=== PATIENT | female | born 1985 ===

== ENCOUNTER → 2020-02-28 09:48 | Outpatient (BNVA) | payer MEDICAID, SELFPAY | PROVIDERS: PCP Internal Medicine; Visit Provider Student in an Organized Health Care Education/Training Program | DX: Z76.89 Persons encountering health services in other specified circumstances (principal) ==

== ENCOUNTER → 2020-03-26 14:34 | Outpatient (BNVA) | payer MEDICAID, SELFPAY | PROVIDERS: PCP Internal Medicine; Visit Provider Nurse Practitioner Family | DX: M47.814 Spondylosis without myelopathy or radiculopathy, thoracic region (principal); M54.2 Cervicalgia; M46.1 Sacroiliitis, not elsewhere classified; M54.16 Radiculopathy, lumbar region | CPT/HCPCS: 99202 ==

== ENCOUNTER 2020-04-08 11:59 | Outpatient (REF) | payer MEDICAID, SELFPAY ==
--- NOTE | 2020-04-08 12:08 | XR_ITS ---
EXAMINATION: XR THORACIC SPINE CLINICAL INFORMATION: Spondylosis without myelopathy or radiculopathy, thoracic region. COMPARISON: None TECHNIQUE: Thoracic spine, 3 views FINDINGS: The thoracic vertebra have normal height and alignment. The anterior and posterior elements are intact. No focal lytic or osteoblastic lesion. Mild multilevel disc space narrowing and/or vertebral osteophyte formation in the mid to lower thoracic spine. No vertebral endplate erosion or paraspinal soft tissue swelling. XR/XR thoracic spine 2V IMPRESSION: * Mild degenerative changes/spondylosis of the thoracic spine. * No fracture or malalignment.
== END 2020-04-08 12:00 | disposition home or self-care (01) ==
LOC: HO.LAB 11:59
PROVIDERS: Referring Provider Student in an Organized Health Care Education/Training Program; Visit Provider Student in an Organized Health Care Education/Training Program
DX: M47.814 Spondylosis without myelopathy or radiculopathy, thoracic region (principal)
CPT/HCPCS: 72070

== ENCOUNTER → 2020-04-15 12:52 | Outpatient (BNVA) | payer MEDICAID, SELFPAY | PROVIDERS: PCP Internal Medicine; Visit Provider Nurse Practitioner Family | DX: M54.16 Radiculopathy, lumbar region (principal); M46.1 Sacroiliitis, not elsewhere classified; M47.814 Spondylosis without myelopathy or radiculopathy, thoracic region | CPT/HCPCS: 99212 ==

== ENCOUNTER 2020-05-27 06:06 | Outpatient (REF) | payer MEDICAID, SELFPAY ==
--- NOTE | ~2020-05-27 | FL_ITS ---
EXAMINATION: XR FLUOROSCOPY WITH IMAGES CLINICAL INFORMATION: Thoracic spondylosis COMPARISON: None. TECHNIQUE: Fluoroscopy performed by Charlotte Menjivar NP. Fluoroscopy time: 0.7 minutes DAP: 4.1 Gycm2 Images: 6 FINDINGS: Images demonstrate needle placement and contrast injection of the paravertebral soft tissues adjacent to the the lower thoracic spine bilaterally. FL/FL guidance in treatment room IMPRESSION: Fluoroscopic guidance for bilateral paraspinal injections.
== END 2020-05-27 06:07 | disposition home or self-care (01) ==
LOC: HO.RADIR 06:06
PROVIDERS: Visit Provider Anesthesiology
DX: M47.814 Spondylosis without myelopathy or radiculopathy, thoracic region (principal); M54.16 Radiculopathy, lumbar region; M46.1 Sacroiliitis, not elsewhere classified
CPT/HCPCS: 64490; 64491; Q9967

== ENCOUNTER → 2020-06-03 10:18 | Outpatient (BNVA) | payer MEDICAID, SELFPAY | PROVIDERS: PCP Internal Medicine; Visit Provider Nurse Practitioner Family ==

== ENCOUNTER 2020-07-08 14:20 | Outpatient (REF) | payer MEDICAID, SELFPAY ==
[2020-07-08 14:51] LABS: COVID-19 Test Negative (Negative)
== END 2020-07-08 14:21 | disposition home or self-care (01) ==
LOC: HO.LAB 14:20
PROVIDERS: Visit Provider Internal Medicine
DX: Z20.822 Contact with and (suspected) exposure to COVID-19 (principal)
CPT/HCPCS: 36415; 87635; C9803

== ENCOUNTER → 2020-11-03 13:51 | Outpatient (BNVA) | payer MEDICAID, SELFPAY | PROVIDERS: PCP Internal Medicine; Visit Provider Nurse Practitioner Family | DX: M47.814 Spondylosis without myelopathy or radiculopathy, thoracic region (principal) | CPT/HCPCS: 99212 ==

== ENCOUNTER 2021-07-10 12:52 | Outpatient (REF) | payer MEDICAID, SELFPAY ==
[2021-07-10 14:14] LABS: Alanine Aminotransferase 27 U/L (0-31); Albumin Level 4.4 g/dL (3.5-5.0); Alkaline Phosphatase 69 U/L (39-117); Anion Gap 14 (12-20); Aspartate Amino Transferase 23 U/L (5-31); Bilirubin Total 0.3 mg/dL (0.0-1.0); Blood Urea Nitrogen 10 mg/dL (9-16); Calcium 9.6 mg/dL (8.4-10.2); Carbon Dioxide 24 mmol/L (22-29); Chloride 106 mmol/L (96-108); Estimated Glomerular Filt Rate > 60; Glucose Random 89 mg/dL (60-115); Sodium 140 mmol/L (135-145); Total Protein 7.5 g/dL (6.5-8.0)
== END 2021-07-10 12:53 | disposition home or self-care (01) ==
LOC: HO.LAB 12:52
PROVIDERS: Visit Provider Nurse Practitioner Family
DX: M47.814 Spondylosis without myelopathy or radiculopathy, thoracic region (principal); M46.1 Sacroiliitis, not elsewhere classified
CPT/HCPCS: 36415; 80053; 99212

== ENCOUNTER → 2021-08-19 09:19 | Outpatient (BNVA) | payer MEDICAID, SELFPAY | PROVIDERS: PCP Internal Medicine; Visit Provider Nurse Practitioner Family | DX: M47.814 Spondylosis without myelopathy or radiculopathy, thoracic region (principal); M54.16 Radiculopathy, lumbar region; M62.838 Other muscle spasm | CPT/HCPCS: 99212 ==

== ENCOUNTER → 2021-08-25 10:35 | Outpatient (BNVA) | payer SELFPAY | PROVIDERS: PCP Internal Medicine; Visit Provider Internal Medicine | DX: Z02.79 Encounter for issue of other medical certificate (principal) ==

== ENCOUNTER → 2021-09-30 09:02 | Outpatient (BNVA) | payer MEDICAID, SELFPAY | PROVIDERS: PCP Internal Medicine; Visit Provider Nurse Practitioner Family | DX: M47.24 Other spondylosis with radiculopathy, thoracic region (principal); M54.16 Radiculopathy, lumbar region; M62.838 Other muscle spasm; M25.562 Pain in left knee; Z79.899 Other long term (current) drug therapy | CPT/HCPCS: 99212 ==

== ENCOUNTER 2021-10-09 10:34 | Outpatient (REF) | payer MEDICAID, SELFPAY ==
--- NOTE | ~2021-10-09 | MR_ITS ---
EXAMINATION: MR THORACIC SPINE WITHOUT CONTRAST CLINICAL INFORMATION: Thoracic radiculopathy. COMPARISON: Thoracic spine radiographs 04/08/2020. TECHNIQUE: MRI of the thoracic spine was obtained using routine sequences without contrast. FINDINGS: Alignment is normal. Vertebral heights are preserved. Mixed type II and type III degenerative endplate changes at T9-T10 and T10-T11. No acute bone marrow signal changes. There is slight loss of intervertebral disc height and T2 signal intensity at multiple levels related to disc degeneration. Annular contours are normal and there is no canal or neuroforaminal compromise. No cord compression or abnormal intramedullary signal changes. Limited visualization of intrathoracic anatomy reveals no abnormal finding. Specifically no paraspinal soft tissue mass or collection. MR/MR thoracic spine wo con IMPRESSION: There is degenerative spondylosis at the level of T9-T10 and T10-T11. Otherwise unremarkable examination. No canal or neuroforaminal compromise. No cord compression or abnormal intramedullary signal changes.
== END 2021-10-09 10:35 | disposition home or self-care (01) ==
LOC: HO.MRI 10:34
PROVIDERS: Visit Provider Nurse Practitioner Family
DX: M54.14 Radiculopathy, thoracic region (principal); M47.816 Spondylosis without myelopathy or radiculopathy, lumbar region
CPT/HCPCS: 72146

== ENCOUNTER 2021-10-14 12:30 | Outpatient (REF) | payer MEDICAID, SELFPAY ==
--- NOTE | ~2021-10-14 | XR_ITS ---
EXAMINATION: KNEE X-RAY CLINICAL INFORMATION: Pain COMPARISON: None TECHNIQUE: Standing AP view of both knees and lateral and sunrise view of the left knee FINDINGS: Left: Bone alignment is normal. No fracture or dislocation is seen. Joint spaces are normal. There is no joint effusion. There is an osteophyte at the quadriceps tendon insertion to the patella. Standing AP view of the right knee is unremarkable. XR/XR knee LT 2V IMPRESSION: Small osteophyte at the quadriceps tendon insertion to the patella otherwise unremarkable exam.
--- NOTE | ~2021-10-14 | XR_ITS ---
EXAMINATION: KNEE X-RAY CLINICAL INFORMATION: Pain COMPARISON: None TECHNIQUE: Standing AP view of both knees and lateral and sunrise view of the left knee FINDINGS: Left: Bone alignment is normal. No fracture or dislocation is seen. Joint spaces are normal. There is no joint effusion. There is an osteophyte at the quadriceps tendon insertion to the patella. Standing AP view of the right knee is unremarkable. XR/XR knee standing BI IMPRESSION: Small osteophyte at the quadriceps tendon insertion to the patella otherwise unremarkable exam.
== END 2021-10-14 12:31 | disposition home or self-care (01) ==
LOC: HO.HOSX 12:30
PROVIDERS: Visit Provider Physician Assistant
DX: M23.92 Unspecified internal derangement of left knee (principal); S80.02XA Contusion of left knee, initial encounter; M25.561 Pain in right knee
CPT/HCPCS: 73560; 73565; 99202

== ENCOUNTER 2021-11-03 18:41 | Outpatient (REF) | payer MEDICAID, SELFPAY ==
--- NOTE | ~2021-11-03 | MR_ITS ---
EXAMINATION: MR KNEE WITHOUT CONTRAST, LEFT CLINICAL INFORMATION: Left knee pain and swelling following a fall in September 2021. Internal derangement. COMPARISON: None. TECHNIQUE: MRI of the knee without contrast was performed using routine sequences on a high-field scanner. FINDINGS: MENISCI: Medial Meniscus: Intact. Lateral Meniscus: Intact. LIGAMENTS: Cruciate: Intact Collateral: Attenuation and irregularity at the anterior aspect of the proximal medial collateral ligament with adjacent soft tissue edema consistent with an acute grade 2 sprain/partial tear. Intact fibular collateral ligament. EXTENSOR MECHANISM: Normal patellofemoral alignment. No patella shanna. Intact quadriceps and patellar tendons. Focal edema within the superolateral aspect of Hoffa's fat pad which can be seen in the setting of patellar tendon lateral femoral condyle friction syndrome. ARTICULAR CARTILAGE/BONE: Patellofemoral Compartment: Normal. Medial Compartment: Normal. Lateral Compartment: Normal. JOINT FLUID AND BURSAE: Trace joint effusion and trace Trimble's cyst. MR/MR knee LT wo con IMPRESSION: 1. Acute grade 2 sprain/partial tear of the medial collateral ligament. 2. Focal edema within the superolateral aspect of Hoffa's fat pad which can be seen in the setting of patellar tendon lateral femoral condyle friction syndrome. Normal patellofemoral alignment. 3. Trace joint effusion and trace Trimble's cyst.
== END 2021-11-03 18:42 | disposition home or self-care (01) ==
LOC: HO.MRI 18:41
PROVIDERS: Visit Provider Physician Assistant
DX: S80.02XA Contusion of left knee, initial encounter (principal); M23.92 Unspecified internal derangement of left knee
CPT/HCPCS: 73721

== ENCOUNTER → 2021-11-30 09:31 | Outpatient (BNVA) | payer MEDICAID, SELFPAY | PROVIDERS: PCP Internal Medicine; Visit Provider Physician Assistant | DX: S83.412A Sprain of medial collateral ligament of left knee, initial encounter (principal) | CPT/HCPCS: 99212 ==

== ENCOUNTER 2021-12-04 08:20 | Outpatient (REF) | payer MEDICAID, SELFPAY ==
[2021-12-04 15:23] LABS: CT PCR NOT DETECTED (Not Detect.); NG PCR NOT DETECTED (Not Detect.)
[2021-12-05 15:14] LABS: BV Int Neg Control Negative (Negative); BV Int Pos Control Positive (Positive)
== END 2021-12-04 08:21 | disposition home or self-care (01) ==
LOC: HO.LNP 08:20
PROVIDERS: Visit Provider Advanced Practice Midwife
DX: Z11.3 Encounter for screening for infections with a predominantly sexual mode of transmission (principal); N89.8 Other specified noninflammatory disorders of vagina; Z20.2 Contact with and (suspected) exposure to infections with a predominantly sexual mode of transmission
CPT/HCPCS: 87480; 87491; 87510; 87591; 87660; 99212

== ENCOUNTER 2022-02-22 12:33 | Outpatient (REF) | payer MEDICAID, SELFPAY ==
[2022-02-23 02:14] LABS: CT PCR NOT DETECTED (Not Detect.); NG PCR NOT DETECTED (Not Detect.)
[2022-02-23 14:31] LABS: BV Int Neg Control Negative (Negative); BV Int Pos Control Positive (Positive)
[2022-02-26 05:18] LABS: HPV mRNA E6/E7 rflx Not Detected (Not Detected)
== END 2022-02-22 12:34 | disposition home or self-care (01) ==
LOC: HO.LNP 12:33
PROVIDERS: Visit Provider Advanced Practice Midwife
DX: Z12.4 Encounter for screening for malignant neoplasm of cervix (principal); Z11.3 Encounter for screening for infections with a predominantly sexual mode of transmission; Z11.51 Encounter for screening for human papillomavirus (HPV)
CPT/HCPCS: 87480; 87491; 87510; 87591; 87624; 87660; 88142

== ENCOUNTER → 2022-03-18 08:36 | Outpatient (BNVA) | payer MEDICAID, SELFPAY | PROVIDERS: PCP Internal Medicine; Visit Provider Anesthesiology | DX: M25.562 Pain in left knee (principal); M47.814 Spondylosis without myelopathy or radiculopathy, thoracic region; M54.14 Radiculopathy, thoracic region; M54.16 Radiculopathy, lumbar region; M62.838 Other muscle spasm | CPT/HCPCS: 99212 ==

== ENCOUNTER → 2022-07-09 09:01 | Outpatient (BNVA) | payer MEDICAID, SELFPAY | PROVIDERS: PCP Internal Medicine; Visit Provider Nurse Practitioner Family | DX: M47.814 Spondylosis without myelopathy or radiculopathy, thoracic region (principal); M54.16 Radiculopathy, lumbar region | CPT/HCPCS: 99212 ==

== ENCOUNTER → 2022-11-01 10:25 | Outpatient (BNVA) | payer SELFPAY | PROVIDERS: PCP Internal Medicine; Visit Provider Physician Assistant Medical | DX: Z02.79 Encounter for issue of other medical certificate (principal) ==

== ENCOUNTER 2023-02-28 11:33 | Outpatient (AMB) | payer MEDICAID, SELFPAY ==
--- NOTE | 2023-02-28 11:36 | A.OFFVIS_ITS ---
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: No Information Interpreted: non-clinical & clinical Non Destructive Evaluation Technician: Non Destructive Evaluation Technician Present ([place]) Allergies No Known Allergies Allergy (Mild, Verified 02/28/23 11:40) UNKNOWN Medication List - Last Reconciled 02/28/23 by Nubia Villagran CNM acetaminophen ER (Mapap Arthritis Pain) 650 mg PO Q12H PRN fluoxetine 40 mg PO QAM gabapentin 300 mg PO TID 30 days levonorgestrel (Mirena) intrauterine tizanidine 4 mg PO BEDTIME PRN trazodone 50 mg PO BEDTIME Is last menstrual period known: No (No menses mirena) Post menopausal: No HPI Annual HPI Details 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 She thinks she has had id for about 7 or 8 years. She is not having any periods with aunt and is not having any problems with it. She did not get a letter about her Pap smear because she was evicted from her house because the landlord sold the house with only 30 days notice and she was homeless sleeping in her car for a while. She was going to live with the father of her children for a while but then he committed suicide. She does not have anyone else here her mother and her father had gone to [place] She says she has not been able to cry but she cried during this visit she is not sexually active and has not been for about 8 months. If she did become sexually active she would use protection. She said she had a therapist but the therapist quit and then she had 1 telephone visit with another 1 but she never called back again [facility] Medical History Thoracic spondylosis Family History (Updated 02/28/23 @ 11:42 by CAMRYN Vail) Mother Diabetes High cholesterol Uterine cancer Social History Household Members: Children Housing: House Alcohol intake: never Patient Tobacco Use Status: Former Tobacco user Female Reproductive History Menstrual Age of Menarche: 14 control method: progestin IUCD Total pregnancies: 2 Full term: 2 Number of Living Children: 2 Date of last pap smear: 02/23/22 (negative) Physical Exam Vital Signs: BMI result Body Mass Index 34.7 Const General: healthy appearing, comfortable, no acute distress, well developed and alert Nutritional Appearance: average body habitus Orientation/consciousness: patient oriented x3 Limitations: no limitations HEENT Head: Yes normocephalic Neck Neck: Yes normal visual inspection Chest Chest palpation & inspection: normal inspection of the chest Breast/axilla inspection: normal inspection of the breasts and normal inspection of the axillae Breast/axilla palpation: normal palpation of the breasts and normal palpation of the axillae Resp Effort & Inspection: normal respiratory effort GI Inspection: Yes normal to inspection, No Abdominal wall edema and No distended Palpation (GI): Soft to palpation and nontender Other: Normal speculum exam vagina pink moist cervix multiparous pink smooth healthy with Mirena string visible. Uterus small midposition to anteverted mobile nontender adnexa nontender good tone with Kegel. General: Yes bladder normal to palpation External Female Exam: normal external appearance and normal appearance of the urethra Speculum Exam - Vagina: normal appearance of the vagina, normal palpation and normal vaginal discharge Speculum Exam - Cervix: normal appearance of the cervix (With Mirena strings visible with healthy appearing mucus), normal palpation and nontender Bimanual exam- vagina & uterus: normal bimanual exam, normal palpation, uterine size normal, bladder normal to palpation, consistency normal, normal palpation, uterine mobility normal, uterine shape normal, No Cervical tenderness present, non-tender and no cervical motion tenderness Bimanual Exam- Adnexa, other: normal adnexae, no masses, normal and No adnexal tenderness Neuro General: patient oriented x3 Assessment & Plan Assessment & Plan (1) Presence of 52 mg levonorgestrel-releasing intrauterine device (IUD): Code(s): Z97.5 - Presence of (intrauterine) contraceptive device (2) Screen for sexually transmitted diseases: Comment: (and test of cure for trichomoniasis 03/04.) Code(s): Z11.3 - Encounter for screening for infections with a predominantly sexual mode of transmission (3) Cervical cancer screening: Comment: pt states she had hpv in past; pap done 02/22/22=neg/ w neg hpv. Code(s): Z12.4 - Encounter for screening for malignant neoplasm of cervix (4) Complicated grief: Code(s): F43.21 - Adjustment disorder with depressed mood Plan -----Discussed in this visit the following: healthy balanced diet, regular and consistent exercise, getting recommended health screens, doing the best she can for her particular health concerns, kegel exercises, pap smear screening and followup recommendations, mammography screening and SBE, normal changes in cycles in her life stage--- .-discussed the Mirena IU S recommendations currently are that it can be left in for 7-8 years for control or 5 years for control of bleeding for her prevention of would be the most important thing and she would not want to take a risk on it even if the recommendations say 1 can. Reviewed that she can replace it at any point this year that is convenient for her if she does return to normal menses then returned placing it at the beginning of a period would be the best time and we would remove 1 and put another 1 in we she should not rely on it for control probably at this point and she should use condoms for protection as well. She has had at least 3 difficult challenges this year with her father leaving becoming homeless and then the by suicide of the father of her children she burst into tears and said this is the 1st time she has been able to cry except sometime she can cry in her car she can not cry at work or in front of her kids She says she has unstable housing now. She said it felt good to cry. Suggested she may want to call to find a different therapist and she may when it is possible to do that she has to had to work after this she works 2 jobs her children are 7 about to be 8 and 15. She tries to stay strong for them. She says where she is living is quiet and safe. We will see her in 1 year and any time that is convenient for her to switch out the Mirena. Orders: Orders Bacterial Vaginosis Panel Today Z11.3 - Encounter for screening for infections with a predominantly sexual mode of transmission CT NG by PCR Today Z11.3 - Encounter for screening for infections with a predominantly sexual mode of transmission Coding Level of Care Code Est Pt Prev Care 18-39y(85916) Diagnoses Presence of 52 mg levonorgestrel-releasing intrauterine device (IUD) Z97.5 Screen for sexually transmitted diseases Z11.3 Cervical cancer screening Z12.4 Complicated grief F43.21
[2023-02-28 11:39] VITALS: BMI 34.7
== END 2023-02-28 13:03 | disposition home or self-care (01) ==
LOC: HO.HWSM 11:33
PROVIDERS: PCP Internal Medicine; Visit Provider Advanced Practice Midwife
DX: Z97.5 Presence of (intrauterine) contraceptive device (principal); Z11.3 Encounter for screening for infections with a predominantly sexual mode of transmission; Z12.4 Encounter for screening for malignant neoplasm of cervix; F43.21 Adjustment disorder with depressed mood
CPT/HCPCS: 99395

== ENCOUNTER 2023-02-28 11:33 | Outpatient (REF) | payer MEDICAID, SELFPAY ==
[2023-03-01 06:14] LABS: CT PCR NOT DETECTED (Not Detect.); NG PCR NOT DETECTED (Not Detect.)
[2023-03-01 16:15] LABS: BV Int Neg Control Negative (Negative); BV Int Pos Control Positive (Positive)
== END 2023-02-28 11:34 | disposition home or self-care (01) ==
LOC: HO.LNP 11:33
PROVIDERS: PCP Internal Medicine; Visit Provider Advanced Practice Midwife
DX: Z01.419 Encounter for gynecological examination (general) (routine) without abnormal findings (principal); Z11.3 Encounter for screening for infections with a predominantly sexual mode of transmission; Z97.5 Presence of (intrauterine) contraceptive device; Z79.899 Other long term (current) drug therapy
CPT/HCPCS: 0353U; 87480; 87510; 87660; 99395

== ENCOUNTER 2023-07-11 09:16 | Outpatient (AMB) | payer MEDICAID, SELFPAY ==
--- NOTE | 2023-07-11 09:28 | MHC.OFFVIS ---
Vital Signs 07/11/23 09:30 Height 5 ft 2 in Weight 205 lb 0.478 oz BMI 37.5 BP 136/80 Blood Pressure Location Rt brachial Position Sitting Pulse 95 Pulse Source Pulse Oximeter Pulse Oximetry (%) 99 Oxygen Delivery Method Room Air Intake Visit Reasons: 1 yr f/u for Back Pain Intake Note: Patient last seen by Pepper Swan 07/09/22 presents today for 1 year follow up. Still has back pain also reports R hand pain/numbing. 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 She states that she continues to have thoracic back pain. 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 Recently she has been having tingling and numbness of her right hand. Usually worse with activities such as washing dishes and at night. [facility] Medical History Thoracic spondylosis Family History Mother Diabetes High cholesterol Uterine cancer Social History Household Members: Children Housing: House Alcohol intake: never Patient Tobacco Use Status: Former Tobacco user Female Reproductive History Menstrual Age of Menarche: 14 Review of Systems Musc Reports back pain, Reports numbness and Reports tingling Neuro Reports numbness and Reports tingling Physical Exam Vital Signs: Last Vital Signs Pulse 95 07/11/23 09:30 BP 136/80 07/11/23 09:30 Pulse Ox 99 07/11/23 09:30 Oxygen Delivery Method Room Air 07/11/23 09:30 BMI result Body Mass Index 37.5 Const General: cooperative, healthy appearing and comfortable Nutritional Appearance: obese morbidly obese Orientation/consciousness: patient oriented x3 Limitations: no limitations HEENT Head: Yes normocephalic and Yes atraumatic Resp Effort & Inspection: normal respiratory effort and able to speak in complete sentences Skin General skin exam: no rashes or lesions noted Neuro General: patient oriented x3 Extrem Other: Positive Tinel sign right hand No active synovitis Results Reviewed Results Reviewed: Laboratory Tests [facility] labs 04/13/2016 Lyme negative, JINNY negative, Sjogren's antibodies negative, westley negative, CCP negative, scleroderma antibody negative, double-stranded DNA negative, CRP 0.3 mg/dL, CPK 109. Ordering Physician: Charlotte Menjivar NP Date of Service: 10/09/21 Procedure(s): MR thoracic spine wo con Accession Number(s): [id number] EXAMINATION: MR THORACIC SPINE WITHOUT CONTRAST CLINICAL INFORMATION: Thoracic radiculopathy. COMPARISON: Thoracic spine radiographs 04/08/2020. TECHNIQUE: MRI of the thoracic spine was obtained using routine sequences without contrast. FINDINGS: Alignment is normal. Vertebral heights are preserved. Mixed type II and type III degenerative endplate changes at T9-T10 and T10-T11. No acute bone marrow signal changes. There is slight loss of intervertebral disc height and T2 signal intensity at multiple levels related to disc degeneration. Annular contours are normal and there is no canal or neuroforaminal compromise. No cord compression or abnormal intramedullary signal changes. Limited visualization of intrathoracic anatomy reveals no abnormal finding. Specifically no paraspinal soft tissue mass or collection. MR/MR thoracic spine wo con IMPRESSION: There is degenerative spondylosis at the level of T9-T10 and T10-T11. Otherwise unremarkable examination. No canal or neuroforaminal compromise. No cord compression or abnormal intramedullary signal changes. Assessment & Plan Assessment & Plan (1) Numbness of right hand: Code(s): R20.0 - Anesthesia of skin Category: Medical Plan: Likely carpal tunnel syndrome. Ordered EMG/NCV. Prescribed a wrist splint (2) Thoracic spondylosis: Code(s): M47.814 - Spondylosis without myelopathy or radiculopathy, thoracic region Category: Medical Plan: On gabapentin and tizanidine prescribed by other providers. Plan I spent 25_ minutes reviewing patient's chart, evaluating patient, ordering diagnostic workup, counseling patient and documenting in the chart Orders: Orders NE electromyogram (EMG) Today R20.0 - Anesthesia of skin Medications: New [wrist splint] wear nightly & as much as possible throughout the day 1 ea 0RF G56.01 - Carpal tunnel syndrome, right upper limb Coding Level of Care Code Est Pt Level 4 (03680) Diagnoses Numbness of right hand R20.0 Thoracic spondylosis M47.814
[2023-07-11 09:30] VITALS: BP 136/80; PULSE 95; O2SAT 99; BMI 37.5
== END 2023-07-11 09:55 | disposition home or self-care (01) ==
PROVIDERS: PCP Internal Medicine; Referring Provider Internal Medicine; Visit Provider Student in an Organized Health Care Education/Training Program
DX: R20.0 Anesthesia of skin (principal); M47.814 Spondylosis without myelopathy or radiculopathy, thoracic region
CPT/HCPCS: 99214

== ENCOUNTER → 2023-07-11 09:16 | Outpatient (BNVA) | payer MEDICAID, SELFPAY | PROVIDERS: PCP Internal Medicine; Visit Provider Student in an Organized Health Care Education/Training Program | DX: M79.7 Fibromyalgia (principal); M47.814 Spondylosis without myelopathy or radiculopathy, thoracic region; M54.9 Dorsalgia, unspecified; R20.0 Anesthesia of skin | CPT/HCPCS: 99212 ==

== ENCOUNTER 2023-07-27 09:01 | Outpatient (AMB) | payer MEDICAID, SELFPAY ==
--- NOTE | 2023-07-27 09:02 | A.OFFVIS_ITS ---
Vital Signs 07/27/23 09:06 Height 5 ft 2 in Weight 206 lb 4 oz BMI 37.7 BP 130/70 Blood Pressure Location Lt brachial Position Sitting Respiration 16 Pulse 74 Pulse Source Pulse Oximeter Pulse Oximetry (%) 94 Oxygen Delivery Method Room Air Intake Visit Reasons: medication review Intake Note: Patient comes in for medication review. Reports pain 5/10. Allergies No Known Allergies Allergy (Mild, Verified 07/27/23 09:06) UNKNOWN HPI Comments Details: Danika is back in my office to renew her gabapentin. Fortunately she ignored my recommendations about physical therapy for her left knee. She has collateral ligament partial tear in the knee. She may develop severe arthritis and wobbly knee if she does not do physical therapy. She told us that nobody called her to invite her for physical therapy. I will make a note of it and make sure that this time she will go for physical therapy. I also explained to her home exercise program. She is strongly recommended to get engaged with physical therapy I will send new order. I will renew her gabapentin. Prior: She is suffering from spondylosis of the thoracic spine, she went for T9-T10 T11 medial branch blocks which resulted in pain exacerbation. On the MRI of the thoracic spine the only abnormalities are related to spondylosis of T9- T10 T11 vertebra as. The rest of the MRI is completely normal. She is also suffering from partial tear of medial collateral ligament and lateral femoral condyle friction syndrome. She was under care t of orthopedic surgeons no surgery was recommended. I believe she may be help with physical therapy. I also recommended her low impact aerobic exercise such as swimming [facility] Medical History Thoracic spondylosis Family History Mother Diabetes High cholesterol Uterine cancer Social History Household Members: Children Housing: House Alcohol intake: never Patient Tobacco Use Status: Former Tobacco user Female Reproductive History Menstrual Age of Menarche: 14 Review of Systems Const All systems reviewed & are unremarkable except as noted in HPI and below ENT Reports Normal hearing present Neuro Reports Normal hearing present, Denies Abnormal speech present and Denies confusion Psych Denies confusion Physical Exam Const General: cooperative, healthy appearing, no acute distress, alert and well groomed; No confusion Orientation/consciousness: patient oriented x3 and No confusion HEENT Head: Yes normocephalic and Yes atraumatic Ears: hearing grossly normal bilaterally Eyes General: appearance normal, both eyes and all related structures Eyelids: Yes eyelids normal Pupils: Equal, round and reactive pupils present EOM: EOMs intact bilaterally Neck Neck: Yes normal visual inspection and Yes no JVD Resp Effort & Inspection: normal respiratory effort, able to speak in complete sentences and no audible wheezes Cardio Jugular venous distension: no JVD Back/Spine/Pelvis Other: Tenderness of palpation paraspinal spinal region T9-T10 T11 vertebras of the thoracic spine Neuro General: patient oriented x3, moves all extremities and No confusion Cranial nerves: Yes Equal, round and reactive pupils present and Yes Normal hearing present Cognition (Neuro): normal cognition Speech: No Abnormal speech present Extrem Other: left knee skin intact, no erythema, edema or warmth. good rom, some discomfort noted with flexion. TTP throughout medial joint line Psych Appearance: grossly normal Mental Status: mental status grossly normal Speech and movement: Normal speech and movement present Affect: normal affect Attitude: cooperative Thought process: Normal thought process present Thought content: Normal thought content present Insight: Good insight present (Psych) Judgement: Good judgement present (Psych) Results Reviewed Results Reviewed: XR LUMBAR SPINE 2017: FINDINGS: Vertebral body heights and alignment are normal. There is disc space narrowing at T9-T10 and T10-T11. The remaining disc spaces are well-maintained. No acute fracture or spondylolisthesis is seen. There is mild spondylosis extending from T9-T10 through T12-L1. The posterior elements are intact. The soft tissue planes are unremarkable. An intrauterine device is noted. IMPRESSION: 1. There is moderate degenerative disc disease at T9-T10 and T10-T11. 2. No acute fracture or spondylolisthesis is seen. Assessment & Plan Assessment & Plan (1) Thoracic spondylosis: Code(s): M47.814 - Spondylosis without myelopathy or radiculopathy, thoracic region Category: Medical (2) Thoracic radiculitis: Code(s): M54.14 - Radiculopathy, thoracic region Category: Medical (3) Lumbar back pain with radiculopathy affecting left lower extremity: Code(s): M54.16 - Radiculopathy, lumbar region Category: Medical (4) Muscle spasm: Code(s): M62.838 - Other muscle spasm Category: Medical (5) Left medial knee pain: Code(s): M25.562 - Pain in left knee Category: Medical (6) Partial tear of medial collateral ligament of knee: Code(s): S83.419A - Sprain of medial collateral ligament of unspecified knee, initial encounter Category: Medical Plan This patient is suffering from spondylosis of the thoracic spine and consequence s of the partial medial contralateral ligament tear. Radiology also did diagnosed her lateral humeral condyle friction syndrome. She will be sent for physical therapy. Importance of physical therapy was emphasized for the patient. Gabapentin will be renewed as prior. She is under care of Dr. Guevara and she is diagnosed with carpal tunnel syndrome with . Orders: Orders PT Evaluation and Treatment Today S83.419A - Sprain of medial collateral ligament of unspecified knee, initial encounter Medications: Refilled gabapentin 300 mg PO TID 30 days 90 caps 8RF Patient Instructions: I here by testify that I spent 30 minutes in conversation with this patient as well as planning her care and organizing this note. Coding Level of Care Code Est Pt Level 4 (87227) Diagnoses Thoracic spondylosis M47.814 Thoracic radiculitis M54.14 Lumbar back pain with radiculopathy affecting left lower extremity M54.16 Muscle spasm M62.838 Left medial knee pain M25.562 Partial tear of medial collateral ligament of knee S83.419A
[2023-07-27 09:06] VITALS: BP 130/70; PULSE 74; RESP 16; O2SAT 94; BMI 37.7
== END 2023-07-27 09:14 | disposition home or self-care (01) ==
PROVIDERS: PCP Internal Medicine; Referring Provider Internal Medicine; Visit Provider Anesthesiology
DX: M47.814 Spondylosis without myelopathy or radiculopathy, thoracic region (principal); M54.14 Radiculopathy, thoracic region; M54.16 Radiculopathy, lumbar region; M62.838 Other muscle spasm; M25.562 Pain in left knee; S83.419A Sprain of medial collateral ligament of unspecified knee, initial encounter
CPT/HCPCS: 99214

== ENCOUNTER → 2023-07-27 09:01 | Outpatient (BNVA) | payer MEDICAID, SELFPAY | PROVIDERS: PCP Internal Medicine; Visit Provider Anesthesiology | DX: M47.814 Spondylosis without myelopathy or radiculopathy, thoracic region (principal); S83.419D Sprain of medial collateral ligament of unspecified knee, subsequent encounter; M54.14 Radiculopathy, thoracic region; M54.16 Radiculopathy, lumbar region; M62.838 Other muscle spasm; M25.562 Pain in left knee; Z79.899 Other long term (current) drug therapy | CPT/HCPCS: 99212 ==

== ENCOUNTER 2023-08-02 09:37 | Outpatient (REF) | payer MEDICAID, SELFPAY ==
--- NOTE | 2023-08-02 09:41 | EMG_ITS ---
Bilateral median and ulnar motor and sensory studies were performed. Bilateral radial and median and lateral antecubital brachial sensory studies were performed. Limited needle examination was done only on 1 side as she did not tolerate the test. IMPRESSION: Mild bilateral ulnar neuropathy across cubital tunnel with no evidence of median neuropathy. MD PANCHO Sauceda/DEVONTEL / [id number]
== END 2023-08-02 09:38 | disposition home or self-care (01) ==
LOC: HO.NEURO 09:37
PROVIDERS: Visit Provider Student in an Organized Health Care Education/Training Program
DX: R20.0 Anesthesia of skin (principal)
CPT/HCPCS: 95886; 95913

== ENCOUNTER 2023-08-25 10:14 | Outpatient (REF) | payer MEDICAID, SELFPAY ==
[2023-08-25 12:22] LABS: Alanine Aminotransferase 16 U/L (0-31); Albumin Level 4.5 g/dL (3.5-5.0); Alkaline Phosphatase 80 U/L (39-117); Anion Gap 11 (12-20); Aspartate Amino Transferase 16 U/L (5-31); Bilirubin Total 0.3 mg/dL (0.0-1.0); Blood Urea Nitrogen 7 mg/dL (9-16); Calcium 9.3 mg/dL (8.4-10.2); Carbon Dioxide 26 mmol/L (22-29); Chloride 105 mmol/L (96-108); Cholesterol 196 mg/dL (<200); Estimated Glomerular Filt Rate > 60; Glucose Random 100 mg/dL (60-115); HDL Cholesterol 43 mg/dL (>40); LDL Cholesterol Calculated 109 mg/dL (<100); Potassium 3.9 mmol/L (3.3-5.1); Sodium 138 mmol/L (135-145); Total Protein 7.9 g/dL (6.5-8.0); Triglycerides 224 mg/dL (<150)
[2023-08-25 12:41] LABS: HBS Num1 > 1000.00 mIU/mL (0-7.99); HBc Num1 0.17 S/CO (0.00-0.79); HBsAGNum1 1.13 S/CO (0.00-0.99); Hepatitis A Antibody IgM 0.25 Index (0-0.79); Hepatitis B Core Antibody Nonreactive (Nonreactive); ~HepC Num1 0.15 S/CO (0.00-0.79); ~Hepatitis A Antibody IgM Nonreactive (Nonreactive); ~Hepatitis B Surface Antibody REACTIVE (Nonreactive); ~Hepatitis C Antibody Nonreactive (Nonreactive)
[2023-08-25 12:47] LABS: TSH reflex Free T4 6.97 uIU/mL (0.32-4.0); Vitamin D 25-OH Total 22.8 ng/mL (>30)
[2023-08-25 12:51] LABS: Reflex LDLD? No
[2023-08-25 14:12] LABS: HBsAGNum2 Reactive; HBsAGNum3 Reactive; Hepatitis B Surface Antigen Retest CNFM (Negative)
[2023-08-29 11:23] LABS: HBsAG NON-REACTIVE
== END 2023-08-25 10:15 | disposition home or self-care (01) ==
LOC: HO.HHCL 10:14
PROVIDERS: Visit Provider Internal Medicine
DX: M47.816 Spondylosis without myelopathy or radiculopathy, lumbar region (principal); L20.84 Intrinsic (allergic) eczema; J45.20 Mild intermittent asthma, uncomplicated
CPT/HCPCS: 36415; 80053; 80061; 82306; 84439; 84443; 86704; 86706; 86709; 86803; 87340

== ENCOUNTER → 2023-09-19 08:59 | Outpatient (REF) | payer MEDICAID, SELFPAY | LOC: HO.SL 08:59 | PROVIDERS: PCP Registered Nurse; Visit Provider Registered Nurse | DX: G47.33 Obstructive sleep apnea (adult) (pediatric) (principal); R20.0 Anesthesia of skin | CPT/HCPCS: 95806; 99212 ==

== ENCOUNTER 2023-09-19 09:14 | Outpatient (AMB) | payer MEDICAID, SELFPAY ==
--- NOTE | 2023-09-19 09:16 | A.OFFVIS_ITS ---
Vital Signs 09/19/23 09:18 Height 5 ft 2 in Weight 207 lb 3.752 oz BMI 37.9 BP 124/80 Blood Pressure Location Lt brachial Position Sitting Pulse 92 Pulse Source Pulse Oximeter Pulse Oximetry (%) 98 Oxygen Delivery Method Room Air Intake Visit Reasons: CTS Intake Note: Patient presents for CTS. Allergies No Known Allergies Allergy (Mild, Verified 09/19/23 09:18) UNKNOWN Medication List - Last Reconciled 09/19/23 by Joe Saunders MD acetaminophen ER (Mapap Arthritis Pain) 650 mg PO Q12H PRN gabapentin 300 mg PO TID 30 days levonorgestrel (Mirena) intrauterine tizanidine 4 mg PO BEDTIME PRN trazodone 50 mg PO BEDTIME HPI Comments Details: 38-year-old female with fibromyalgia returns for follow-up. She completed her bilateral upper extremity EMG/NCV which showed mild bilateral cubital tunnel syndrome. [facility] Medical History Thoracic spondylosis Family History Mother Diabetes High cholesterol Uterine cancer Social History Household Members: Children Housing: House Alcohol intake: never Patient Tobacco Use Status: Former Tobacco user Female Reproductive History Menstrual Age of Menarche: 14 Review of Systems Musc Reports numbness and Reports tingling Neuro Reports numbness and Reports tingling Physical Exam Vital Signs: Last Vital Signs Pulse 92 09/19/23 09:18 BP 124/80 09/19/23 09:18 Pulse Ox 98 09/19/23 09:18 Oxygen Delivery Method Room Air 09/19/23 09:18 BMI result Body Mass Index 37.9 Const General: cooperative, healthy appearing and comfortable Nutritional Appearance: obese morbidly obese Orientation/consciousness: patient oriented x3 Limitations: no limitations HEENT Head: Yes normocephalic and Yes atraumatic Resp Effort & Inspection: normal respiratory effort and able to speak in complete sentences Skin General skin exam: no rashes or lesions noted Neuro General: patient oriented x3 Extrem Other: No active synovitis Assessment & Plan Assessment & Plan (1) Numbness of right hand: Code(s): R20.0 - Anesthesia of skin Category: Medical Plan: EMG/NCV showed bilateral cubital tunnel syndrome. Referred patient to hand surgeon. Appointment tomorrow Plan I spent 15 minutes reviewing patient's chart, evaluating patient, counseling patient and documenting in the chart Coding Level of Care Code Est Pt Level 3 (40352) Diagnoses Numbness of right hand R20.0
[2023-09-19 09:18] VITALS: BP 124/80; PULSE 92; O2SAT 98; BMI 37.9
== END 2023-09-19 10:07 | disposition home or self-care (01) ==
PROVIDERS: PCP Registered Nurse; Referring Provider Registered Nurse; Visit Provider Student in an Organized Health Care Education/Training Program
DX: R20.0 Anesthesia of skin (principal)
CPT/HCPCS: 99213

== ENCOUNTER → 2023-09-19 19:00 | Outpatient (BNV) | payer MEDICAID, SELFPAY | PROVIDERS: PCP Registered Nurse; Visit Provider Internal Medicine | DX: G47.33 Obstructive sleep apnea (adult) (pediatric) (principal) | CPT/HCPCS: 95806 ==

== ENCOUNTER → 2023-11-08 12:00 | Outpatient (BNVA) | payer SELFPAY | PROVIDERS: PCP Registered Nurse; Visit Provider Registered Nurse | DX: Z02.79 Encounter for issue of other medical certificate (principal) ==

== ENCOUNTER 2023-12-09 17:09 | Outpatient (REF) | payer MEDICAID, SELFPAY | END 2023-12-09 17:10 | disposition home or self-care (01) | LOC: HO.HHCLNP 17:09 | PROVIDERS: Visit Provider Internal Medicine | DX: R39.89 Other symptoms and signs involving the genitourinary system (principal) | CPT/HCPCS: 87086; 87088; 87186 ==

== ENCOUNTER 2023-12-13 16:26 | Outpatient (REF) | payer MEDICAID, SELFPAY ==
[2023-12-14 03:26] LABS: CT PCR NOT DETECTED (Not Detect.); NG PCR NOT DETECTED (Not Detect.)
[2023-12-14 22:58] LABS: Trichomonas vaginalis RNA NOT DETECTED (NOT DETECTED)
== END 2023-12-13 16:27 | disposition home or self-care (01) ==
LOC: HO.HHCLNP 16:26
PROVIDERS: Visit Provider Advanced Practice Midwife
DX: R39.9 Unspecified symptoms and signs involving the genitourinary system (principal); Z11.3 Encounter for screening for infections with a predominantly sexual mode of transmission
CPT/HCPCS: 36415; 87086; 87491; 87591; 87661

== ENCOUNTER 2024-01-24 15:59 | Outpatient (AMB) | payer MEDICAID, SELFPAY ==
[2024-01-24 16:05] VITALS: BP 122/78; PULSE 86; O2SAT 99; BMI 38.4
--- NOTE | 2024-01-24 16:05 | MHC.OFFVIS ---
Vital Signs 01/24/24 16:05 Height 5 ft 2 in Weight 210 lb 1.608 oz BMI 38.4 BP 122/78 Blood Pressure Location Lt brachial Position Sitting Pulse 86 Pulse Source Pulse Oximeter Pulse Oximetry (%) 99 Oxygen Delivery Method Room Air Intake Visit Reasons: Cubital,tunnel/cm Intake Note: Patient presents today wioth numbness of right hand, no change since she was last seen on 09/19/23. Allergies No Known Allergies Allergy (Mild, Verified 01/24/24 16:08) UNKNOWN Medication List - Last Reconciled 01/24/24 by Joe Saunders MD acetaminophen ER (Mapap Arthritis Pain) 650 mg PO Q12H PRN gabapentin 300 mg PO TID 30 days levonorgestrel (Mirena) intrauterine tizanidine 4 mg PO BEDTIME PRN trazodone 50 mg PO BEDTIME HPI Comments Details: 38-year-old female with fibromyalgia returns for follow-up. I had refer her to a hand surgeon for evaluation of cubital tunnel syndrome. Patient stated that her symptoms were not so severe and she did not go. She continues to feel achy all the time. She takes gabapentin 300 mg t.i.d. as well as tizanidine 4 mg bedtime. She states that the tizanidine helps sleep. [facility] Medical History Thoracic spondylosis Family History Mother Diabetes High cholesterol Uterine cancer Social History Household Members: Children Housing: House Alcohol intake: never Patient Tobacco Use Status: Former Tobacco user Female Reproductive History Menstrual Age of Menarche: 14 Review of Systems Const Reports body aches and Reports fatigue Musc Reports arthralgias Endo Reports fatigue Physical Exam Vital Signs: Last Vital Signs Pulse 86 01/24/24 16:05 BP 122/78 01/24/24 16:05 Pulse Ox 99 01/24/24 16:05 Oxygen Delivery Method Room Air 01/24/24 16:05 BMI result Body Mass Index 38.4 Const General: cooperative, healthy appearing and comfortable Nutritional Appearance: obese morbidly obese Orientation/consciousness: patient oriented x3 Limitations: no limitations HEENT Head: Yes normocephalic and Yes atraumatic Resp Effort & Inspection: normal respiratory effort and able to speak in complete sentences Skin General skin exam: no rashes or lesions noted Neuro General: patient oriented x3 Extrem Other: Few fibromyalgia tender points No active synovitis Assessment & Plan Assessment & Plan (1) Fibromyalgia, primary: Code(s): M79.7 - Fibromyalgia Category: Medical Plan: This is a 38-year-old female with fibromyalgia who presents for follow-up. Discussed management of fibromyalgia with patient. Is a noninflammatory, non-autoimmune central afferent processing disorder leading to a diffuse pain syndrome. I suggested that patient try to address her underlying psychiatric issues, anxiety/depression. I suggested evaluation by a therapist and/or a psychiatrist. Consider a referral for a sleep study to rule out TAPAN by her PCP. Try to follow sleep hygiene practices. Patient would benefit from increased physical activity, either through formal physical therapy or by joining a gym. Advised patient that she should start activity slowly and increase as tolerated. Consider low-impact exercises such as walking, swimming, aqua therapy stretching, yoga. Tizanidine seems to be helpful. Refilled. She is also on gabapentin prescribed by Pain Management. Discussed with patient that she can request tizanidine refills from PCP. Follow-up with us as needed Plan I spent 16 minutes reviewing patient's chart, evaluating patient, counseling patient and documenting in the chart Medications: Refilled tizanidine 4 mg PO BEDTIME PRN 30 tabs 1RF for muscle spasm M54.16 - Radiculopathy, lumbar region Coding Level of Care Code Est Pt Level 3 (91967) Diagnoses Fibromyalgia, primary M79.7
== END 2024-01-24 16:29 | disposition home or self-care (01) ==
PROVIDERS: PCP Registered Nurse; Visit Provider Student in an Organized Health Care Education/Training Program
DX: M79.7 Fibromyalgia (principal)
CPT/HCPCS: 99213

== ENCOUNTER → 2024-01-24 15:59 | Outpatient (BNVA) | payer MEDICAID, SELFPAY | PROVIDERS: PCP Registered Nurse; Visit Provider Student in an Organized Health Care Education/Training Program | DX: M79.7 Fibromyalgia (principal); M54.16 Radiculopathy, lumbar region; G56.20 Lesion of ulnar nerve, unspecified upper limb | CPT/HCPCS: 99212 ==

== ENCOUNTER 2024-03-01 10:08 | Outpatient (REF) | payer MEDICAID, SELFPAY ==
[2024-03-02 03:40] LABS: CT PCR NOT DETECTED (Not Detect.); NG PCR NOT DETECTED (Not Detect.)
[2024-03-02 10:53] LABS: HPV 16,18/45 See PAP report
[2024-03-02 13:12] LABS: Bacterial Vaginosis PCR POSITIVE (Negative); Candida Group PCR DETECTED (Not Detect); Candida glab krusei PCR NOT DETECTED (Not Detect); Trichomonas vaginalis PCR NOT DETECTED (Not Detect)
== END 2024-03-01 10:09 | disposition home or self-care (01) ==
LOC: HO.LAB 10:08
PROVIDERS: PCP Registered Nurse; Visit Provider Advanced Practice Midwife
DX: Z01.419 Encounter for gynecological examination (general) (routine) without abnormal findings (principal); N89.8 Other specified noninflammatory disorders of vagina; Z97.5 Presence of (intrauterine) contraceptive device; F43.21 Adjustment disorder with depressed mood; Z11.3 Encounter for screening for infections with a predominantly sexual mode of transmission
CPT/HCPCS: 0352U; 87491; 87591; 87624; 88175; 99395; 99459

== ENCOUNTER 2024-03-01 10:08 | Outpatient (AMB) | payer MEDICAID, SELFPAY ==
--- NOTE | 2024-03-01 10:12 | MHC.OFFVIS ---
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 She says things are going better this year she has housing in [place] housing she has her son and her daughter with her and her adopted child.. 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 She does have a partner now, she is not particularly worried about infection, but open to testing. I reviewed what I found in her old record that she had had JANEEN 2 and a LEEP in 2010. She had numerous abnormal Paps building up to that. But they have been normal since in 2013 and and negative with negative HPV in 2021. She did not remember but she had had her Mirena replaced by Korni Ferrera cnm at the [facility] in 2020. She found out because she had a urinary tract infection a couple of months ago, and went to see her primary care provider, Dr De Anda at [facility] and was treated, but her doctor said she needed to go see the TEN at the [facility] and she was referred there and starchmaker a looked up in her records that she had replaced her IUD in 2020 patient herself did not remember it at all but it explains why she is not getting any menses and that is been so long I will update the problem list for both of these issues in her chart. She is concerned about her weight gain. she tries to eat better now and is going to be working on it. At least she is living in a stable place. She says her daughter is still dealing with the trauma that she experienced regarding her child's father's history, but she is doing better and has therapy in school. [facility] Medical History Thoracic spondylosis Family History Mother Diabetes High cholesterol Uterine cancer Social History Household Members: Children Housing: House Alcohol intake: never Patient Tobacco Use Status: Former Tobacco user Female Reproductive History Menstrual Age of Menarche: 14 Duration of menses: <3 days control method: progestin IUCD Total pregnancies: 2 Full term: 2 Date of last pap smear: 02/23/22 (neg.pap-hpv) Physical Exam Vital Signs: Last Vital Signs BP 118/72 03/01/24 10:15 BMI result Body Mass Index 39.5 Const General: healthy appearing, comfortable, no acute distress, well developed and alert Nutritional Appearance: average body habitus Orientation/consciousness: patient oriented x3 Limitations: no limitations HEENT Head: Yes normocephalic Neck Neck: Yes normal visual inspection Chest Chest palpation & inspection: normal inspection of the chest Breast/axilla inspection: normal inspection of the breasts and normal inspection of the axillae Breast/axilla palpation: normal palpation of the breasts and normal palpation of the axillae Resp Effort & Inspection: normal respiratory effort GI Inspection: Yes normal to inspection, No Abdominal wall edema and No distended Palpation (GI): Soft to palpation and nontender Other: Normal vaginal exam vagina pink and moist with scant white discharge homogeneous.. Cervix pink smooth with Mirena string visible slightly difficult to fully visualize secondary to redundant vaginal tissue cervix long close thick mobile nontender uterus midposition to anteverted mobile nontender good tone Kegel. General: Yes bladder normal to palpation External Female Exam: normal external appearance and normal appearance of the urethra Speculum Exam - Vagina: normal appearance of the vagina, normal palpation and normal vaginal discharge Speculum Exam - Cervix: normal appearance of the cervix, normal palpation and nontender Bimanual exam- vagina & uterus: normal bimanual exam, normal palpation, uterine size normal, bladder normal to palpation, consistency normal, normal palpation, uterine mobility normal, uterine shape normal, No Cervical tenderness present, non-tender and no cervical motion tenderness Bimanual Exam- Adnexa, other: normal adnexae, no masses, normal and No adnexal tenderness Neuro General: patient oriented x3 Results Reviewed Results Reviewed: Name: Danika Pena Age/Sex: 36/F Attending: Nubia Villagran CNM : 1985 Submitted by: Nubia Villagran CNM Copies to: MR #: [id number] Status: DEP REF Collected: 02/22/22 Location: [facility] Received: 02/23/22 Interpretation Satisfactory for evaluation. Negative for intraepithelial lesion or malignancy. HPV mRNA E6/E7: NOT DETECTED This assay detects E6/E7 viral messenger RNA (mRNA) from 14 high-risk HPV types (16, 18, 31, 33, 35, 39, 45, 51, 52, 56, 58, 59, 66, 68) HPV testing performed by [facility], [place], [place]. See reference laboratory portion of the EMR for entire report. Clinical Information LMP: 01/2022 Previous PAP test: 03/2020, WNL Material Received ThinPrep-Cervical Electronically Signed By: Claritza Mckeon 03/08/22 1407 The Pap Test is a screening procedure with the inherent possibility of both false negative and false positive results. Results should be interpreted in the context of historic and current clinical findings. Reliability of the Pap Test is enhanced by performing the test on a regular repetitive basis. Patient: Danika Pena Age/Sex: 36/F MR#: [id number] Page 1 of 1 Assessment & Plan Assessment & Plan (1) Well woman exam with routine gynecological exam: Code(s): Z01.419 - Encounter for gynecological examination (general) (routine) without abnormal findings Category: Medical (2) Cervical cancer screening: Comment: pt states she had hpv in past; (chart historical data reviewed patient had abnormal Pap smears in early 2 leading up to JANEEN 2 in 2010 she had a LEEP 2010 last abnormal Pap 2012, pap done 02/22/22=neg/ w neg hpv.; Pap done 03/01/24 Code(s): Z12.4 - Encounter for screening for malignant neoplasm of cervix Category: Medical (3) Presence of 52 mg levonorgestrel-releasing intrauterine device (IUD): Comment: Patient found out from CNM at [facility] that it had been replaced 2020. Code(s): Z97.5 - Presence of (intrauterine) contraceptive device Category: Social Hx (4) Complicated grief: Code(s): F43.21 - Adjustment disorder with depressed mood Category: Medical (5) Screen for sexually transmitted diseases: Comment: (and test of cure for trichomoniasis 03/04.) Code(s): Z11.3 - Encounter for screening for infections with a predominantly sexual mode of transmission Category: Medical Plan -----Discussed in this visit the following: healthy balanced diet, regular and consistent exercise, getting recommended health screens, doing the best she can for her particular health concerns, kegel exercises, pap smear screening and followup recommendations, mammography screening and SBE, normal changes in cycles in her life stage--- . She feels things are much better this year see [facility] for all of the details. Testing done for STIs. Pap smear done out of an abundance of caution because of her extensive history of abnormals past. She discovered that Mirena had replaced 3 years ago 2020 [facility] so she does need it replaced this year. See HPI for more of the details all-in-all she is doing much better. Discussed the challenges of weight loss and role of protein vegetables carbohydrates in diet Orders: Orders Pap Smear Today Z01.419 - Encounter for gynecological examination (general) (routine) without abnormal findings CT NG by PCR Today N89.8 - Other specified noninflammatory disorders of vagina Bacterial Vaginosis Panel Today N89.8 - Other specified noninflammatory disorders of vagina Coding Level of Care Code Est Pt Prev Care 18-39y(57279) Diagnoses Well woman exam with routine gynecological exam Z01.419 Cervical cancer screening Z12.4 Presence of 52 mg levonorgestrel-releasing intrauterine device (IUD) Z97.5 Complicated grief F43.21 Screen for sexually transmitted diseases Z11.3
[2024-03-01 10:15] VITALS: BP 118/72; BMI 39.5
== END 2024-03-01 11:37 | disposition home or self-care (01) ==
LOC: HO.HWSM 10:08
PROVIDERS: PCP Registered Nurse; Visit Provider Advanced Practice Midwife
DX: Z01.419 Encounter for gynecological examination (general) (routine) without abnormal findings (principal); Z12.4 Encounter for screening for malignant neoplasm of cervix; Z97.5 Presence of (intrauterine) contraceptive device; F43.21 Adjustment disorder with depressed mood; Z11.3 Encounter for screening for infections with a predominantly sexual mode of transmission
CPT/HCPCS: 99395; 99459

== ENCOUNTER 2024-08-27 08:03 | Outpatient (REF) | payer MEDICAID, SELFPAY ==
--- OUTSIDE RECORDS SUMMARY | 2024-08-27 08:09 | XMS_ITS | Data Portability ---
Author Organization [facility], [address] Address [address] [place] [address] Assessment No assessment recorded. Plan of Treatment Reminders Order Date Submit Date Provider Last Modified By Organization Details Last Modified Time Details Appointments None recorded. Lab measles + mumps + rubella virus IgG panel, QN, serum or plasma 023 023 [id number] [facility], [place], [address], 19:37:45 Referral None recorded. Procedures None recorded. Surgeries None recorded. Imaging None recorded. Medication Orders None recorded. Patient TargetsNo targets recorded. Patient InstructionsNo instructions recorded. Reason for Referral None Reported. Results Created Date Observation Date Name Description Value Unit Range Abnormal Flag Note LastModifiedBy Organization Detail LastModifiedTime 11/25/1911/25/2022 MEASL ES/MU MPS/R UBELL A IMMUN ITY rubella antibodies, IgG 1.79 index immune >0.99 Non-i mmune <0.90 Equiv ocal 0.90 - 0.99 Immun e >0.99 Not Available [facility] ([facility]) [address], [place], [address], 11/25/2022 10:06:31 11/25/1911/25/2022 MEASL ES/MU MPS/R UBELL A IMMUN ITY measles antibodies, IgG 25.1 AU/mL immune >16.4 Negat dotty <13.5 Equiv ocal 13.5 - 16.4 Posit dotty >16.4 Prese nce of antib odies to Rubeo la is presu mptiv e evide nce of immun ity excep t when acute infec tion is suspe cted. Not Available [facility] ([facility]) [address], [place], [address], 11/25/2022 10:06:31 11/25/19 23 11/25/2022 MEASL ES/MU MPS/R UBELL A IMMUN ITY mumps abs, IgG 111.0 AU/mL immune >10.9 Negat dotty <9.0 Equiv ocal 9.0 - 10.9 Posit dotty >10.9 A posit dotty resul t gener ally indic ates past expos ure to Mumps virus or previ ous vacci natio n. Not Available [facility] ([facility]) [address], [place], [address], 11/25/2022 10:06:31 Result Notes None recorded. Procedures Surgical History Date Name Laterality Status Provider Name and Address Organization Details Recorded Time 11/25/19 OC - Venipuncture Template completed RUDI [place] - [facility] 11/24/2022 12:03:20 Imaging Results None recorded. Procedure Notes None recorded. Medical Equipment None Reported. Medications Name Sig Start Date Stop Date Status Note LastModified by Organization Details LastModified Time fluoxetine 40 mg capsule TAKE ONE CAPSULE BY MOUTH EVERY DAY IN THE MORNING active Not Available Not Available No t Available trazodone 50 mg tablet TAKE ONE TABLET BY MOUTH ONCE DAILY AT BEDTIME active Not Available Not Available No t Available cetirizine 10 mg tablet TAKE ONE TABLET BY MOUTH EVERY DAY NEEDED FOR ALLERGIES active Not Available Not Available No t Available tizanidine 4 mg tablet TAKE ONE TABLET BY MOUTH AT BEDTIME NEEDED FOR MUSCLE SPASM. active Not Available Not Available No t Available metronidazole 500 mg tablet TAKE ONE TABLET BY MOUTH TWO TIMES A DAY FOR 7 DAYS active Not Available Not Available No t Available gabapentin 300 mg capsule TAKE ONE CAPSULE BY MOUTH THREE TIMES A DAY active Not Available Not Available No t Available gabapentin 100 mg capsule TAKE ONE CAPSULE BY MOUTH THREE TIMES A DAY active Not Available Not Available No t Available Ventolin HFA 90 mcg/actuation aerosol inhaler INHALE TWO PUFFS BY MOUTH EVERY 4 HOURS NEEDED FOR WHEEZING active Not Available Not Available No t Available Vitals None Recorded Social History None recorded. Functional Status None recorded. Mental Status None recorded. Family History Nothing Reported. Medical History No medical history recorded. Gynecological HistoryNo gynecological history recorded. Obstetrics History GPAL:G 0 P 0 0 0 0 Past Encounters Encounter ID Performer Location Encounter Start Date Encounter Closed Date Diagnosis/Indication Diagnosis SNOMED-CT Code Diagnosis ICD10 Code Diagnosis Note [id number] [facility] [id number] [address] [facility] [place] [address] 11/24/2022 11:10:30 11/24/2022 12:08:56 History and physical examination, occupation 771645824 Z02.1 History an d physical examination, pre-employment [id number] Z02.1 Health Concerns Section Related Observation LastModified by Organization Detai ls LastModified Time None Recorded Concern Status LastModified by Organization Details LastModified Time None Recorded Advance Directives Directive None Recorded Payers Insurance Date Sequence Insurance Name Policy Number Policy Lynne Covered Member ID Lynne Member ID Guarantor Name 01/12/2024 PAY AT TOS Danika Muro 01/12/2024 OC-PAY AT TIME OF SERVICE 2022 Danika Muro OBGyn Episode No OBEpisode recorded.
[2024-08-27 12:08] LABS: Anion Gap 12 (12-20); Blood Urea Nitrogen 14 mg/dL (9-16); Calcium 9.1 mg/dL (8.4-10.2); Carbon Dioxide 24 mmol/L (22-29); Chloride 108 mmol/L (96-108); Cholesterol 227 mg/dL (<200); Estimated Glomerular Filt Rate > 60; Glucose Random 93 mg/dL (60-115); HDL Cholesterol 47 mg/dL (>40); LDL Cholesterol Calculated 136 mg/dL (<100); Potassium 3.5 mmol/L (3.3-5.1); Sodium 140 mmol/L (135-145); Triglycerides 221 mg/dL (<150)
[2024-08-27 12:10] LABS: Free T4 (Free Thyroxine) 0.93 ng/dL (0.71-1.85); T4 Thyroxine 7.3 ug/dL (4.5-12.0); Thyroid Stimulating Hormone 2.62 uIU/mL (0.32-4.0)
[2024-08-27 12:31] LABS: Reflex LDLD? No
[2024-08-28 04:13] LABS: Triiodothyronine T3 Free 3.2 pg/mL (2.3-4.2); Triiodothyronine T3 Total 106 ng/dL (76-181)
[2024-08-28 20:23] LABS: Thyroglobulin Antibodies 76 IU/mL (< or = 1)
== END 2024-08-27 08:04 | disposition home or self-care (01) ==
LOC: HO.HHCL 08:03
PROVIDERS: Visit Provider Internal Medicine
DX: E66.812 Obesity, class 2 (principal); R79.89 Other specified abnormal findings of blood chemistry; E66.09 Other obesity due to excess calories; Z68.35 Body mass index [BMI] 35.0-35.9, adult
CPT/HCPCS: 36415; 80048; 80061; 84436; 84439; 84443; 84480; 84481; 86800

== ENCOUNTER 2024-11-11 23:42 | Emergency (ER) | payer MEDICAID, SELFPAY ==
--- NOTE | 2024-11-11 | ECG_ITS ---
Test Reason : dizziness Blood Pressure : */* mmHG Vent. Rate : 118 BPM Atrial Rate : 118 BPM P-R Int : 152 ms QRS Dur : 78 ms QT Int : 326 ms P-R-T Axes : 33 21 -9 degrees QTcB Int : 456 ms Sinus tachycardia Possible Anterior infarct , age undetermined Abnormal ECG No previous ECGs available Referred By: Generic ED Physician Electronically Signed By: JAIDA SARAH MD
[2024-11-11 23:46] VITALS: BP 158/96; PULSE 120; RESP 20; TEMP 37.3; O2SAT 99; BMI 36.7
[2024-11-12 00:09] LABS: MANUAL DIFF FLAG NO
[2024-11-12 00:13] LABS: Hematocrit 35.7 % (37.0-47.0); Hemoglobin 12.0 g/dl (12.0-16.0); Imm Gran Abs Auto 0.05 X10*3/uL (0.00-0.03); Imm Gran Pct Auto 0.4 % (0.0-0.4); Lymphocytes Absolute Auto 1.3 X10*3/uL (1.2-4.9); Mean Corpuscular HGB Conc 33.6 g/dl (31.0-35.0); Mean Corpuscular Hemoglobin 27.5 pg (27.0-33.0); Mean Corpuscular Volume 81.9 fL (80.0-98.0); NRBC Abs Auto 0.000 X10*3/uL (0.0-0.012); NRBC Pct Auto 0.0 /100WBC (0.0-0.2); Platelet Count 222 X10*3/uL (160-400); Red Blood Count 4.36 X10*6/uL (4.20-5.50); White Blood Count 13.2 X10*3/uL (4.8-10.8)
[2024-11-12 00:25] LABS: Alanine Aminotransferase 17 U/L (0-31); Albumin Level 4.5 g/dL (3.5-5.0); Alkaline Phosphatase 91 U/L (39-117); Anion Gap 15 (12-20); Aspartate Amino Transferase 20 U/L (5-31); Blood Urea Nitrogen 10 mg/dL (9-16); Calcium 8.7 mg/dL (8.4-10.2); Carbon Dioxide 23 mmol/L (22-29); Chloride 105 mmol/L (96-108); Creatinine Clr Calc Pharmacy 98.5; Estimated Glomerular Filt Rate > 60; Potassium 4.0 mmol/L (3.3-5.1); Sodium 139 mmol/L (135-145); Total Protein 7.4 g/dL (6.5-8.0)
[2024-11-12 00:28] LABS: COVID-19 Test Negative (Negative); IDNOW Serial# 55D5AD1C; IDNOW Serial# 58CA691E; Influenza B2 Negative (Negative)
[2024-11-12 00:43] VITALS: BP 141/84; PULSE 108
[2024-11-12 00:44] VITALS: BP 134/89; BP 136/85; PULSE 123; PULSE 124
[2024-11-12 00:59] VITALS: BP 141/84; PULSE 108; RESP 18; TEMP 36.8; O2SAT 97
--- OUTSIDE RECORDS SUMMARY | 2024-11-12 01:15 | XMS_ITS | Clinical Summary ---
Author Organization [employer] Address [address] [place] [address] Care Team Providers Care Telephone Betting Clerk Name Role Phone Shana Gonzales MD Primary Care Provider + Allergies No known active allergies Medications * This document contains information received from the source organization and may not represent a complete record from that organization. triamcinolone (Kenalog) 0.1 % cream Apply topically if needed in the morning and at bedtime (pain and swelling). 30 g 4 Active tiZANidine (Zanaflex) 4 MG capsule Take 1 capsule by mouth every 6 (six) hours. Active Levonorgestrel (Mirena, 52 MG,) 20 MCG/DAY intrauterine device by Intrauterine route. Inserted 01/07/2021 Active Blood Pressure Monitoring (Blood Pressure Cuff) [facility] Use daily as prescribed 1 each 4 Active Mometasone Furoate (Asmanex HFA) 100 MCG/ACT aerosol Inhale 1 Act (100 mcg) Once per day. 13 g 11 4 Active albuterol 108 (90 Base) MCG/ACT inhalerIndicatio ns:Mild intermittent asthma without complication Inhale 2 puffs every 4 (four) hours if needed for wheezing. 18 g 3 4 025 Active propranolol (Inderal) 10 MG tabletIndication s:Anxiety Take 1 tablet (10 mg) by mouth if needed in the morning and at bedtime (Anxiety). 60 tablet 1 5 Active traZODone (Desyrel) 50 MG tabletIndication s:Insomnia, unspecified type Take 1 tablet (50 mg) by mouth if needed at bedtime for sleep. 30 tablet 1 5 Active atorvastatin (Lipitor) 40 MG tablet Take 1 tablet (40 mg) by mouth at bedtime. 90 tablet 1 5 026 Active buPROPion XL (Wellbutrin XL) 300 MG 24 hr tabletIndication s:Moderate episode of recurrent major depressive disorder (CMS/HCC) Take 1 tablet (300 mg) by mouth Once per day. Do not crush, chew, or split. 30 tablet 1 5 025 Active Active Problems Problem Noted Date Diagnosed Date Visit for preventive health examination 08/10/19 25 Assessment & Plan (08/09/2024 4:17 PM EDT): Discussed with patient re increase fresh fruit and vegetable intake. Counseled re moderate exercise as tolerated, up to 20min/d Patient feels safe at home. PAP smear: UTD, next 1 due 2028 Eye exam: Overdue, will refer to our eye clinic Lipids/FBS: UTD, due to elevated BP, will repeat today Vaccinations: Declined Td or COVID booster today, advised to get them at her earliest convenience Dental visit: Overdue, advised to get dental clinic appointment at her dentist,Carlos lama or nearest dental clinic PTSD (post-traumatic stress disorder) 03/21/2024 Moderate episode of recurrent major depressive d isorder 03/21/2024 Urine troubles 03/15/2024 Lower urinary tract symptoms (LUTS) 03/15/2024 Assessment & Plan (03/15/2024 4:14 PM EST): Miost likely UTI. Will rx Bactrim and send urine for Ucx. Will fu results and call prn abn culture/sensitivity. Insomnia 02/20/2024 Anxiety 02/20/2024 Assessment & Plan (02/20/2024 12:13 PM EST): RO ADD, I will start her on Wellbutrin daily x 2w then bid and fu in 4w Continue Trazodone QHS She feels safe at home at this time Refer to , may need a BE. Abnormal thyroid blood test 10/20/2023 Assessment & Plan (08/09/2024 4:14 PM EDT): I reminded her to get labs done to rule out thyroid conditions Assessment & Plan (02/20/2024 12:10 PM EST): FU labs were not done. I gave her the lab order to get them done today. Assessment & Plan (10/20/2023 12:21 PM EDT): Maybe related to concomitant episode of COVID at he time Repeat TFTs and fu in 3m or earlier prn Vitamin D deficiency 10/20/2023 Assessment & Plan (10/20/2023 12:20 PM EDT): Start Vit D supplementation x 3m Advised re outdoor activities/sun exposure for at least 20 min / day Pure hypertriglyceridemia 10/20/2023 Assessment & Plan (10/20/2023 12:21 PM EDT): No meds needed at this time Recommended moderate amount of exercise and increase consumption of fruit, vegetables, fish and high fiber foods. Should decrease consumption of highly saturated fats or trans fats. Fu lipids in 1y Elevated blood pressure reading 10/20/2023 Assessment & Plan (08/09/2024 4:13 PM EDT): BP at home seems to be better controlled, I advised her to bring BP readings next time Counseled re low salt diet/increase moderate physical activity. Check home BP BIW and prn CP/MIXON/DOMINGO Non smoking patient, advised regarding weight reduction Assessment & Plan (02/20/2024 12:08 PM EST): It seems to be better controlled at home, will order 24h BP monitoring, will fu after that. Counseled re low salt diet/increase moderate physical activity. Check home BP BIW and prn CP/MIXON/DOMINGO Non smoking patient. Assessment & Plan (10/20/2023 12:19 PM EDT): Ro white coat HTN, patient tells me she gets anxious when coming to doctor's office. Counseled re low salt diet/increase moderate physical activity. Check home BP BIW and prn CP/MIXON/DOMINGO Fu in 3-4m or earlier prn COVID-19 08/25/2023 Assessment & Plan (08/25/2023 10:08 AM EDT): Drink plenty of fluids and rest Patient out of the window for COVID 19 treatment Quarantine as per CDC guidelines If worsening symptoms seek medical attention immediatly Spondylosis of lumbar region without myelopathy or radiculopathy 07/19/2023 Assessment & Plan (07/19/2023 2:06 PM EDT): - seems to be doing well on Tylenol PRN - declined epidural injections a few years ago - consider PT PRN symptoms Mild intermittent asthma without complication Assessment & Plan (08/09/2024 4:15 PM EDT): Doing well on Asmanex, continue albuterol INH as needed as well She is a non-smoker, declined COVID booster or PCV. Assessment & Plan (02/20/2024 12:11 PM EST): Uncontrolled, start Asmanex 100mg/d and adjsut prn Continue albuterol prn. FU 1m Assessment & Plan (07/19/2023 1:22 PM EDT): - controlled use Albuterol PRN - order PFTs Intrinsic eczema 07/19/2023 Assessment & Plan (07/19/2023 1:23 PM EDT): - on left ear - use Triamcinolone cream Adjustment disorder with anxious mood 07/19/2023 Assessment & Plan (07/19/2023 2:08 PM EDT): - long standing history of anxiety, doing better. 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 Recommended to decrease soda and sugary beverage consumption, increase protein intake with meals (at least 1 portion of protein with each meal) to assist with satiety, increase dietary fiber Recommended at least 150 min/week of moderate intensity exercise. Will refer to dietitian, consider medications at future visit and check labs Encounters * This document contains information received from the source organization and may not represent a complete record from that organization. Date Type Department Care Team Description 11/05/2024 Patient Outreach [facility] MEDICINE [address] [place] [phone] Shana Gonzales MD Pre-visit Planning (SDOH screening negative and tobacco screening negative) 10/30/2024 1:30 PM EDT Clinical Support [facility] DIABETES/NUTRITION [address] [place] [phone] Elevated blood pressure reading (Primary Dx); Class 2 obesity due to excess calories without serious comorbidity with body mass index (BMI) of 35.0 to 35.9 in adult 10/30/2024 Travel 10/22/2024 11:00 AM EDT Nutrition [facility] DIABETES/NUTRITION [address] [place] [phone] Elevated blood pressure reading; Class 2 obesity due to excess calories without serious comorbidity with body mass index (BMI) of 35.0 to 35.9 in adult 10/22/2024 Travel 10/01/2024 Telephone [facility]INE [address] [place] [phone] Shana Gonzales MD Referral 10/01/2024 Refill [facility] MED & PEDS [address] [place], [place] [phone] Shana Gonzales MD Moderate episode of recurrent major depressive disorder (CMS/HCC) 09/20/[address] [address] Shana Gonzales MD Appointment Request 09/06/2024 Results Follow-Up [address] [address] Shana Gonzales MD Thyroglobulin Antibodies 09/04/2024 Results Follow-Up [facility] [address] [place] [address] Shana Gonzales MD T3, Total, TSH, T4 (Thyroxine), Total, Additional followed-up results: 2 08/23/2024 Telephone [facility] [address] [place] [address] Shana Gonzales MD Jane recall 08/20/2024 Telephone [facility] [address] [place] [phone] Shana Gonzales MD Referral 08/12/2024 Refill [facility] [address] [place] [address] Shana Gonzales MD from Last 3 Months Immunizations Immunization Administration Dates Next Due Influenza injectable quadrivalent preservative f ree 03/13/2015 Pfizer Covid-19 Vaccine 12+ 01/03/2021, Tdap 03/13/2015 Family History Medical History Relation Name Comments Ovarian cancer Mother Relation Name Status Comments Mother Social History Tobacco Use Types Packs/Day Years Used Date Smoking Tobacco: Never Passive Smoke Exposure: Never Smokeless Tobacco: Never Tobacco Cessation:Counseling Given: Not Answered Alcohol Use Standard Drinks/Week Comments Never 0 (1 standard drink = 0.6 oz pur e alcohol) Alcohol Answer Date Recorded How often do you have a drink containing alcohol ? 0 08/09/2024 How many drinks containing a lcohol do you have on a typical day when you are drinking? 0 08/09/2024 How often do you have six or more drinks on one occasion? 0 08/09/2024 Depression Answer Date Recorded Patient Health Questionnaire-9 Score 23 03/21/2024 Patient Health Questionnaire-9 Score 03/21/2024 Last PHQ-9: Questionnaire Data Not on file 0 03/21/2024 Housing Stability Answer Date Recorded What is your housing situation today? I have ayo franks 11/05/[address] you li ve. Do you have problems with any of the following? None of the above 11/05/2024 Food Insecurity Answer Date Recorded Within the past 12 months, y ou worried that your food would run out before you got money to buy more: Never True 11/05/2024 Within the past 12 months,th e food you bought just didn't last and you didn't have enough money to get more: Never True Transportation Answer Date Recorded In the past 12 months, has l ack of transportation kept you from medical appts, meetings, work or from getting things needed for daily living? No 11/05/2024 Utilities Answer Date Recorded In the past 12 months, has t he electric, gas, oil or water company threatened to shut off services in your home? No 11/05/2024 Depression Answer Date Recorded Patient Health Questionnaire-2 Score 1 08/09/2024 Internet Access Answer Date Recorded Internet Access Q1 Yes 11/05/2024 Internet Access Q2 Not on file 11/05/2024 Comments No Sex and Gender Information Value Date Recorded Sex Assigned at Female 01/11/2022 10:17 AM EDT Legal Sex Female 10:17 AM EDT Gender Identity Female 01/11/2022 10:17 AM EDT Sexual Orientation Straight 01/11/2022 10 :17 AM EDT Last Filed Vital Signs Vital Sign Reading Time Taken Comments Blood Pressure 135/80 08/09/2024 10:23 AM EDT Pulse 96 08/09/2024 9:41 AM EDT Temperature 36.3 C (97.3 F) 08/09/2024 9:41 AM EDT Respiratory Rate 12 08/09/2024 9:41 AM EDT Oxygen Saturation 99% 02/20/2024 11:30 AM EST Inhaled Oxygen Concentration - - Weight 90.4 kg (199 lb 3.2 oz) 10/22/2024 2:21 P M EDT Height 160 cm (5' 3 ) 10/22/2024 2:21 PM EDT Body Mass Index 35.29 10/22/2024 2:21 PM EDT Plan of Treatment Upcoming Encounters Date Type Department Care Team (Late st Contact Info) Description 11/14/2024 9:15 AM EDT Office Visit [facility] [address] [place] [address] Shana Gonzales MD [address] [place], [place] [phone] 11/19/2024 9:45 AM EDT Office Visit [facility] OPTOMETRY [address] [place] [address] Sara Ana, OD [address] [place] [address] 11/27/2024 2:00 PM EDT Clinical Support [facility] DIABETES/NUTRITION [address] [place] [address] Medina Mann, RD [address] [place] [address] Health Maintenance Due Date Last Done Comments HIV Screening 1985 HPV Vaccines (1 - 3-dose series) 2002 Hepatitis B Vaccines (1 of 3 - 19+ 3-dose series) 2006 Pneumococcal Vaccine: Pediatrics (0 to 5 Years) and At-Risk Patients (6 to 49) Years (1 of 2 - PCV) 2006 COVID-19 Vaccine ( - 2023-2 5 season) 2023 01/03/2021, 12/13/2020 Influenza Vaccine (#1) 2024 03/13/2015 Family Planning (PISQ) 12/12/2024 12/13/2023 Depression Monitoring 02/09/2025 08/09/2024 , 03/21/2024 DTaP/Tdap/Td Vaccines (2 - T d or Tdap) 03/13/2025 03/13/2015 Alcohol/Substance Use Screening 08/09/2025 08/09/2024 Disability Screening 08/09/2025 08/09/2024 Tobacco Screening 08/09/2025 08/09/2024 SDOH Screening 11/05/2025 11/05/2024 Cervical Cancer Screening 02/22/2027 HPV/Cotest 02/22/2027 02/22/2022, 01/07/2021 Pap Smear 03/01/2029 03/01/2024, 02/22/2022, 01/07/2021 Lipid Panel 08/27/2029 08/27/2024, 08/25/2023 Zoster Vaccines (1 of 2) 2037 RSV Patients and Patients Aged 60 years or older (1 - 1-dose 75+ series) 2062 Hepatitis C Screening Completed 08/25/2023 HIB Vaccines Aged Out No longer eligi ble based on patient's age to complete this topic Hepatitis A Vaccines Aged Out No long er eligible based on patient's age to complete this topic IPV Vaccines Aged Out No longer eligi ble based on patient's age to complete this topic Meningococcal B Vaccine Aged Out No l onger eligible based on patient's age to complete this topic Meningococcal Vaccine Aged Out No carlos king eligible based on patient's age to complete this topic RSV under 20 months Aged Out No longe r eligible based on patient's age to complete this topic Rotavirus Vaccines Aged Out No longer eligible based on patient's age to complete this topic Procedures Procedure Name Priority Date/Time Associated Diagnosis Comments THYROGLOBULIN ANTIBODIES Routine 08/27/2024 8:06 AM EDT LIPID PANEL WITH REFLEX TO DIRECT LDL Routine 08/27/2024 8:06 AM EDT Class 2 obesity due to excess calories without serious comorbidity with body mass index (BMI) of 35.0 to 35.9 in adult BASIC METABOLIC PANEL Routine 08/27/2024 8:06 AM EDT Class 2 obesity due to excess calories without serious comorbidity with body mass index (BMI) of 35.0 to 35.9 in adult T4 (THYROXINE), TOTAL Routine 08/27/2024 8:06 AM EDT Abnormal thyroid blood test TSH Routine 08/27/2024 8:06 AM EDT Abnormal thyroid blood test T3, TOTAL Routine 08/27/2024 8:06 AM EDT Abnormal thyroid blood test T4, FREE Routine 08/27/2024 8:06 AM EDT Abnormal thyroid blood test T3, FREE Routine 08/27/2024 8:06 AM EDT Abnormal thyroid blood test PAP SMEAR Routine 03/01/2024 12:00 AM EST HEPATITIS PANEL, GENERAL Routine 08/25/2023 10:16 AM EDT Intrinsic eczema HPV MRNA E6/E7 REFLEX TO HPV 16, 18/45 Routine 02/22/2022 12:33 PM EST from Last 3 Months or Most Recently Relevant to Health Maintenance Results * (ABNORMAL) Lipid Panel with Reflex to Direct LDL (08/27/2024 8:06 AM EDT) Triglycerides 221(H) <150 mg/dL [facility] Comment:Desirable Triglyceri de: less than 150 mg/dLBorderline High Triglyceride 150-199 mg/dLHigh Triglyceride: 200-499 mg/dLVery High Triglyceride: greater than or equal to 5OO mg/dL Cholesterol 227(H) <200 mg/dL [facility] Comment:Desirable Cholestero l: less than 200 mg/dLBorderline High Cholesterol: 200-239 mg/dLHigh Cholesterol: greater than 239 mg/dL LDL Cholesterol Calculated 136(H) <100 mg/dL [facility] Comment:Desirable LDL: less than 100 mg/dLNear Optimal/Above Optimal LDL: 110- 129 mg/dLBorderline High LDL: 130-159 mg/dLHigh LDL: 160-189 mg/dLVery High LDL: greater than or equal to 190 mg/dL HDL Cholesterol 47 >40 mg/dL [facility] Comment:Desirable HDL: great er than 40 mg/dL Note: This HDL assay may give artificially low results in patients with liver disease. Blood 08/27/2024 8:06 AM EDT 08/27/2024 11:21 AM EDT us Shana Gonzales MD LAB BLOOD ORDERABLES Fin al Result [facility] [address] [place] [phone] * (ABNORMAL) Thyroglobulin Antibodies (08/27/2024 8:06 AM EDT) Thyroglobulin Antibodies 76(A) < or = 1 IU/mL [facility] Comment:THIS TEST WAS PERFOR MED AT:[employer] [address] [phone] ZAMBRANO MD 08/27/2024 8:06 AM EDT 08/27/2024 11:21 AM EDT Shana Gonzales MD LAB BLOOD ORDERABLES Fin al Result Performing Organization Address [facility] de Phone Number [facility] [address] [place] [phone] * T3, Free (08/27/2024 8:06 AM EDT) T3, Free 3.2 2.3 - 4.2 pg/mL [facility] Comment:THIS TEST WAS PERFOR MED AT:[employer] [address] [phone] ZAMBRANO MD Blood Venous blood specimen / Unknown 08/27/2024 8:06 AM EDT 08/27/2024 11:21 AM EDT Shana Gonzales MD LAB BLOOD ORDERABLES Fin al Result Performing Organization Address [facility] de [facility] Number [facility] [address] [place] [phone] * T3, Total (08/27/2024 8:06 AM EDT) T3, Total 106 76 - 181 ng/dL [facility] Comment:THIS TEST WAS PERFOR MED AT:[employer] [address] [phone] ZAMBRANO MD Blood Venous blood specimen / Unknown 08/27/2024 8:06 AM EDT 08/27/2024 11:21 AM EDT Shana Gonzales MD LAB BLOOD ORDERABLES Fin al Result Performing Organization Address [facility]/ZIP Co de Phone Number [facility] [address] [place] [phone] * TSH (08/27/2024 8:06 AM EDT) Thyroid Stimulating Hormone 2.62 0.32 - 4.0 uIU/mL [facility] Comment:Note: A sustained TS H level above 2.5 uIU/mL may warrant further investigation. TSH 3rd Generation ([facility]) Blood Venous blood specimen / Unknown 08/27/2024 8:06 AM EDT 08/27/2024 11:21 AM EDT Shana Gonzales MD LAB BLOOD ORDERABLES Fin al Result Performing Organization Address [facility]/ZIP Co de Phone Number [facility] [address] [place] [phone] * T4, Free (08/27/2024 8:06 AM EDT) Free T4 (Free Thyroxine) 0.93 0.71 - 1.85 ng/dL [facility] Blood Venous blood specimen / Unknown 08/27/2024 8:06 AM EDT 08/27/2024 11:21 AM EDT Shana Gonzales MD LAB BLOOD ORDERABLES Fin al Result Performing Organization Address City/[facility]/ZIP Co de Phone Number [facility] [address] [place] [phone] * T4 (Thyroxine), Total (08/27/2024 8:06 AM EDT) T4 Thyroxine 7.3 4.5 - 12.0 ug/dL [facility] Blood Venous blood specimen / Unknown 08/27/2024 8:06 AM EDT 08/27/2024 11:21 AM EDT Shana Gonzales MD LAB BLOOD ORDERABLES Fin al Result Performing Organization Address [facility] de Phone Number [facility] [address] [place] [address] [phone] * Basic Metabolic Panel (08/27/2024 8:06 AM EDT) Sodium 140 135 - 145 mmol/L [facility] Potassium 3.5 3.3 - 5.1 mmol/L [facility] Chloride 108 96 - 108 mmol/L [facility] Carbon Dioxide 24 22 - 29 mmol/L [facility] Anion Gap 12 12 - 20 [facility] Urea Nitrogen (BUN) 14 9 - 16 mg/dL [facility] Creatinine, Serum 0.85 0.5 - 1.4 mg/dL [facility] Estimated Glomerular Filt Rate >60 [facility] Comment:Chronic Kidney Disea se: Estimated GFR < 60 mL/min/[id number] Kidney Disease: Estimated GFR < 15 mL/min/1.73m2 Glucose 93 60 - 115 mg/dL [facility] Calcium 9.1 8.4 - 10.2 mg/dL [facility] Blood Venous blood specimen / Unknown 08/27/2024 8:06 AM EDT 08/27/2024 11:21 AM EDT Shana Gonzales MD LAB BLOOD ORDERABLES Fin al Result Performing Organization Address [facility] Co de Phone Number [facility] [address] [place] [address] [phone] * Pap Smear (03/01/2024 12:00 AM EST) 03/01/2024 03/02/2024 9:4 0 AM EST Narrative [facility] - 03/09/2024 10:55 AM EST ----- ------- Name: Danika Pena Age/Sex: 38/F : 1985 Unit#: [id number] Attend Dr: Nubia Villagran CNM Re03/01/24 Status: [facility] REF Location: [facility] Disch: ----- ------- SPEC : [id number] RECD: 03/02/24 STATUS: STORM [place] NUM: [id number] MIRA: 03/01/24-[address]: Nubia Villagran CNM ENTERED: 03/02/24-1022 SP TYPE: Pap Smr OTHR DR: Mervat Scherer ORDERED: Pap Smear Interpretation Satisfactory for evaluation. Negative for intraepithelial lesion or malignancy. Coccobacilli consistent with shift in vaginal nayeli. No endocervical cells seen. HPV High Risk: Positive HPV Genotyping 16: Negative HPV Genotyping 18: Negative Clinical Information LMP: No menses/IUD Previous PAP test: 2021, neg-HPV, abnormal Material Received ThinPrep-Cervical Copies To: Nubia Villagran CNM [facility] [address] [facility] [place] [address] Mervat Scherer [address] [place] [address] ----- ------- Signed (signature on file) JOSAFAT Olivo [facility] 03/09/24 1055 ----- ------- END OF REPORT Generic External Data Provider LAB CYTOLOGY JAKE HAYES Final Result Performing Organization Address [facility] Co de Phone Number [facility] [address] [place] [address] [phone] * Hepatitis Panel, General (08/25/2023 10:16 AM EDT) Pathologist [facility] Hepatitis A IgM Nonreactive Nonreactive [facility] Comment:IgM antibodies to MIXON V not detected; does not exclude earlyacute or recovered HAV infection. ~Hepatitis B Surface Antibody REACTIVE Nonreactive [facility] Comment:REACTIVE: > 11.99 mI U/mL Hepatitis B Core Antibody Nonreactive Nonreactive [facility] Hepatitis C Antibody Nonreactive Nonreactive [facility] Comment:Antibodies to HCV no t detected; does not exclude early acuteHCV infection. Blood 08/25/2023 10:1 6 AM EDT 08/25/2023 11:41 AM EDT Shana Gonzales MD LAB BLOOD ORDERABLES Fin al Result Performing Organization Address [facility] Co de Phone Number [facility] [address] [place] [address] [phone] * HPV mRNA E6/E7 w/Reflex to HPV Genotypes 16, 18/45 (02/22/2022 12:33 PM EST) HPV nRNA E6/E7 Not Detected Not Detected [facility] Comment:Methodology: Transcr iption-Mediated AmplificationThis assay detects E6/E7 viral messenger RNA (mRNA) from 14high-risk HPV types (16,18,31,33,35,39,45,51,52,56,58,59,66,68).Cervical sources are required for HPV testing.If a vaginal source from a patient who has had atotal hysterectomy with removal of cervix wassubmitted, please contact the testing laboratoryfor alternative testing options.For additional information, please refer [email or web address](This link if provided for information/educational purposes only.)THIS TEST WAS PERFORMED AT:[employer] [place] [address],[place] [phone] ZAMBRANO MD HPV mRNA E6/E7 TNP [facility] HPV 16 RNA [facility] HPV 18/45 RNA [facility] 02/22/2022 12:3 3 PM EST 02/23/2022 5:30 PM EST [place] [facility] External Provider LAB CYT OLOGY ORDERABLES Final Result Performing Organization Address City/State/[facility] Co de Phone Number [facility] [address] [place] [address] [phone] from Last 3 Months or Most Recently Relevant to Health Maintenance Insurance Squid [employer]il C3 Care Teams Telephone Betting Clerk Relationship Specialty Start Date End Date Shana Gonzales MD [address] [place] [address] PCP - General Internal Medicine 06/16/23
--- OUTSIDE RECORDS SUMMARY | 2024-11-12 01:15 | XMS_ITS | Encounter Summary ---
Author Organization [employer] Address [address] [place] [address] 7 [place] [address] Care Team Providers Care Chute Worker Name Role Phone Mervat Scherer [facility] Primary Care Provider [phone] Ysabel Lynch NP Primary Care Provider [phone] Shana Gonzales MD Primary Care Provider + Reason for Visit * Reason Comments Med Refill Encounter Details Date Type Department Care Team (Late st Contact Info) Description 10/18/2022 Refill [facility] MEDICINE [address] [place], [place] [phone] Gilmer Mervat, [facility] [address] [place] [address] Anxiety Social History Tobacco Use Types Packs/Day Years Used Date Smoking Tobacco: Never Assessed Comments Unknown Sex and Gender Information Value Date Recorded Sex Assigned at Female 01/11/2022 10:17 AM EDT Legal Sex Female 10:17 AM EDT Gender Identity Female 01/11/2022 10:17 AM EDT Sexual Orientation Straight 01/11/2022 10 :17 AM EDT documented as of this encounter Plan of Treatment Upcoming Encounters Date Type Department Care Team (Late st Contact Info) Description 11/14/2024 9:15 AM EDT Office Visit [facility] MEDICINE [address] [place], [place] [phone] Shana Gonzales MD [address] [place] [address] 11/19/2024 9:45 AM EDT Office Visit [facility] OPTOMETRY [address] [place], [place] [phone] Ana Ruiz, OD [address] [place] [address] 11/27/2024 2:00 PM EDT Clinical Support [facility] DIABETES/NUTRITION [address] [place], [place] [phone] Medina Mann, RD [address] [place] [address] documented as of this encounter Visit Diagnoses Diagnosis Anxiety Anxiety state, unspecified documented in this encounter Care Teams Chute Worker Relationship Specialty Start Date End Date [facility] [address] [place] [address] PCP - General Family Medicine 11/11/21 04/18/23 Ysabel Lynch NP [address] [place] [address] PCP - General Family Medicine 04/19/23 06/15/23 Shana Gonzales MD [address] [place] [address] [phone] PCP - General Internal Medicine 06/16/23 documented as of this encounter
--- OUTSIDE RECORDS SUMMARY | 2024-11-12 01:15 | XMS_ITS | Encounter Summary ---
Author Organization [employer] Address [address] [place] [address] 7 [place] [address] Care Team Providers Care Passport Application Examiner Name Role Phone Mervat Scherer [facility] Primary Care Provider [phone] Ysabel Lynch NP Primary Care Provider [phone] Shana Gonzales MD Primary Care Provider + Reason for Visit * Reason Comments Med Refill Encounter Details Date Type Department Care Team (Late st Contact Info) Description 10/21/2022 Refill [facility] MEDICINE [address] [place], [place] [phone] Gilmer Mervat, [facility] [address] [place] [address] Anxiety Social History Tobacco Use Types Packs/Day [...] Description 11/14/2024 9:15 AM EDT Office Visit [facility] MEDICINE [address] [place], [place] [phone] Shana Gonzales MD [address] [place] [address] 11/19/2024 9:45 AM EDT Office Visit [facility] OPTOMETRY [address] [place], [place] [phone] Ana Ruiz, OD [address] [place] [address] 11/27/2024 2:00 PM EDT Clinical Support [facility] DIABETES/NUTRITION [address] [place], [place] [phone] Medina Mann, RD [address] [place] [address] documented as of this encounter Visit Diagnoses Diagnosis Anxiety Anxiety state, unspecified documented in this encounter Care Teams Passport Application Examiner Relationship Specialty Start Date End Date [facility] [address] [place] [address] PCP - General Family Medicine 11/11/21 04/18/23 Ysabel Lynch NP [address] [place] [address] PCP - General Family Medicine 04/19/23 06/15/23 Shana Gonzales MD [address] [place] [address] [phone] PCP - General Internal Medicine 06/16/23 documented as of this encounter
--- OUTSIDE RECORDS SUMMARY | 2024-11-12 01:15 | XMS_ITS | Encounter Summary ---
Author Organization [employer] Address [address] 7[address] [place] [address] Care Team Providers Care Research Staff Member Name Role Phone Shana Gonzales MD Primary Care Provider + Reason for Visit * Reason Comments Med Refill Encounter Details Date Type Department Care Team ([facility] st Contact Info) Description 01/13/2024 Refill [facility] MEDICINE [address] [place], [place] [phone] hSana Gonzales MD [address] [place], [place] [phone] Anxiety Social History Tobacco Use Types Packs/Day Years Used Date Smoking Tobacco: Never Passive Smoke Exposure: Never Smokeless Tobacco: Never Alcohol Use Standard Drinks/Week Comments Never 0 (1 standard drink = 0.6 oz pur e alcohol) Alcohol Answer Date Recorded Frequency of Alcohol Consumption Not on file 10/20/2023 Average Number of Drinks Not on file 024 Frequency of Binge Drinking Not on file 10/2023 Score 0 10/20/2023 Housing Stability Answer Date Recorded What is your housing situation today? I have ayo franks 07/12/[address] you li ve. Do you have problems with any of the following? None of the above 07/12/2023 Food Insecurity Answer Date Recorded Within the past 12 months, y ou worried that your food would run out before you got money to buy more: Never True 07/12/2023 Within the past 12 months,th e food you bought just didn't last and you didn't have enough money to get more: Never True Transportation Answer Date Recorded In the past 12 months, has l ack of transportation kept you from medical appts, meetings, work or from getting things needed for daily living? No 07/12/2023 Utilities Answer Date Recorded In the past 12 months, has t he electric, gas, oil or water company threatened to shut off services in your home? No 07/12/2023 Depression Answer Date Recorded Patient Health Questionnaire-2 Score 0 07/19/2023 Comments No Sex and Gender Information Value [...] Description 11/14/2024 9:15 AM EDT Office Visit [facility] MEDICINE [address] [place] [address] Shana Gonzales MD [address] [place] [address] 11/19/2024 9:45 AM EDT Office Visit [facility] OPTOMETRY [address] [place] [address] Tarka, Ana, OD [address] [place] [address] 11/27/2024 2:00 PM EDT Clinical Support [facility] DIABETES/NUTRITION [address] [place] [address] Medina Mann, CARRIE [address] [place] [address] documented as of this encounter Visit Diagnoses Diagnosis Anxiety Anxiety state, unspecified documented in this encounter Care Teams Research Staff Member Relationship Specialty Start Date End Date Shana Gonzales MD [address] [place] [address] PCP - General Internal Medicine 06/16/23 documented as of this encounter
--- OUTSIDE RECORDS SUMMARY | 2024-11-12 01:15 | XMS_ITS | Encounter Summary ---
Author Organization [employer] Address [address] [place] [address] 7 [place] [address] Care Team Providers Care Cement Mason Name Role Phone [facility] Primary Care Provider [phone] Ysabel Lynch NP Primary Care Provider [phone] Shana Gonzales MD Primary Care Provider + Reason for Visit * Reason Comments Med Refill Encounter Details Date Type Department Care Team (Late st Contact Info) Description 08/06/2022 Refill [facility] MED & PEDS [address] [place], [place] [phone] [place], [facility] [address] [place], [place] [phone] Anxiety Social History Tobacco Use Types Packs/Day [...] 9:15 AM EDT Office Visit [facility] MEDICINE [address] [place], [place] [phone] Shana Gonzales MD [address] [place] [address] 11/19/2024 9:45 AM EDT Office Visit [facility] OPTOMETRY [address] [place], [place] [phone] Ana Ruiz OD [address] [place] [address] 11/27/2024 2:00 PM EDT Clinical Support [facility] DIABETES/NUTRITION [address] [place] [address] Medina Mann, RD 230 [place] [address] documented as of this encounter Visit Diagnoses Diagnosis Anxiety Anxiety state, unspecified documented in this encounter Care Teams Cement Mason Relationship Specialty Start Date End Date [facility], [facility] [address] [place] [address] PCP - General Family Medicine 11/11/21 04/18/23 Ysabel Lynch NP [address] [place] [address] PCP - General Family Medicine 04/19/23 06/15/23 Shana Gonzales MD [address] [place] [address] PCP - General Internal Medicine 06/16/23 documented as of this encounter
--- OUTSIDE RECORDS SUMMARY | 2024-11-12 01:15 | XMS_ITS | Encounter Summary ---
Author Organization [employer] Address [address] 7[address] [place] [address] Care Team Providers Care Stem Cutter Name Role Phone Shana Gonzales MD Primary Care Provider + Reason for Visit * Reason Comments Med Refill Encounter Details Date Type Department Care Team ([facility] st Contact Info) Description 01/23/2024 Refill [facility] MEDICINE [address] [place], [place] [phone] Shana Gonzales MD 230 [place], [place] [phone] Anxiety Social History Tobacco Use Types Packs/Day [...] Description 11/14/2024 9:15 AM EDT Office Visit [facility] MEDICINE [address] [place] [address] Shana Gonzales MD [address] [place] [address] 11/19/2024 9:45 AM EDT Office Visit [facility] OPTOMETRY [address] [place] [address] Tarka, Ana, OD [address] [place] [address] 11/27/2024 2:00 PM EDT Clinical Support [facility] DIABETES/NUTRITION [address] [place] [address] Medina Mann, CARRIE [address] [place] [address] documented as of this encounter Visit Diagnoses Diagnosis Anxiety Anxiety state, unspecified documented in this encounter Care Teams Stem Cutter Relationship Specialty Start Date End Date Shana Gonzales MD [address] [place] [address] PCP - General Internal Medicine 06/16/23 documented as of this encounter
--- OUTSIDE RECORDS SUMMARY | 2024-11-12 01:15 | XMS_ITS | Encounter Summary ---
Author Organization [employer] [facility] Address [address] [place] [address] 7 [place] [address] Care Team Providers Care Manager Mechanical Maintenance Name Role Phone Ysabel Lynch NP Primary Care Provider [phone] Shana Gonzales MD Primary Care Provider + Reason for Visit * Reason Comments Med Refill Encounter Details Date Type Department Care Team (Late st Contact Info) Description 05/15/2023 Refill [facility] MEDICINE 230 [place], [place] [phone] [facility] [address] [place], [place] [phone] Insomnia, unspecified type Social History Tobacco Use Types Packs/Day Years Used Date Smoking Tobacco: Never Assessed Comments Unknown Sex and Gender Information Value Date Recorded Sex Assigned at Female 01/11/2022 10:17 AM EDT Legal Sex Female 10:17 AM EDT Gender Identity Female 01/11/2022 10:17 AM EDT Sexual Orientation Straight 01/11/2022 10 :17 AM EDT documented as of this encounter Miscellaneous Notes * Telephone Encounter - Ysabel Lynch NP - 05/16/2023 11:36 AM EST Approving, but needs appt for additional refills. documented in this encounter Plan of Treatment Upcoming Encounters Date Type Department Care Team (Late st Contact Info) Description 11/14/2024 9:15 AM EDT Office Visit [facility] MEDICINE [address] [place], [place] [phone] Shana Gonzales MD 230 [place] [address] 11/19/2024 9:45 AM EDT Office Visit [facility] OPTOMETRY [address] [place] [address] Sara Ana, OD [address] [place] [address] 11/27/2024 2:00 PM EDT Clinical Support [facility] DIABETES/NUTRITION [address] [place] [address] Medina Mann, RD 230 [place] [address] documented as of this encounter Visit Diagnoses Diagnosis Insomnia, unspecified type documented in this encounter Care Teams Manager Mechanical Maintenance Relationship Specialty Start Date End Date Ysabel Lynch NP [address] [place] [address] PCP - General Family Medicine 04/19/23 06/15/23 Shana Gonzales MD [address] [place] [address] PCP - General Internal Medicine 06/16/23 documented as of this encounter
--- OUTSIDE RECORDS SUMMARY | 2024-11-12 01:17 | XMS_ITS | Encounter Summary ---
Author Organization [employer] Address [address] 7[address] [place] [address] Care Team Providers Care Credit Card Interviewer Name Role Phone Shana Gonzales MD Primary Care Provider + Reason for Visit * Reason Comments Med Refill Encounter Details Date Type Department Care Team ([facility] st Contact Info) Description 08/12/2024 Refill [facility] MEDICINE [address] [place], [place] [phone] Shana Gonzales MD [address] [place], [place] [phone] Social History Tobacco Use Types Packs/Day Years [...] Score 23 03/21/2024 Patient Health Questionnaire-9 Score 23 03/21/2024 Last PHQ-9: Questionnaire Data Not on [...] Recorded Patient Health Questionnaire-2 Score 1 08/09/2024 Comments No Sex and Gender Information Value [...] 11/14/2024 9:15 AM EDT Office Visit [facility] MEDICINE [address] [place] [address] Shana Gonzales MD [address] [place] [address] 11/19/2024 9:45 AM EDT Office Visit [facility] OPTOMETRY [address] [place] [address] TarAna moise, OD [address] [place] [address] 11/27/2024 2:00 PM EDT Clinical Support [facility] DIABETES/NUTRITION [address] [place] [address] [place] [address] documented as of this encounter Visit Diagnoses Not on filedocumented in this encounter Additional Health Concerns Assessment Noted Time PHQ-9 Depression Total Score: 23 025 10:53 AM EST documented as of this encounter Care Teams Credit Card Interviewer Relationship Specialty Start Date End Date Shana Gonzales MD [address] [place] [address] PCP - General Internal Medicine 06/16/23 documented as of this encounter
--- OUTSIDE RECORDS SUMMARY | 2024-11-12 01:17 | XMS_ITS | Encounter Summary ---
Author Organization [employer] Address [address] [facility] 7t [place] [address] Care Team Providers Care Sleeve Bottom Feller Name Role Phone Shana Gonzales MD Primary Care Provider + Reason for Visit * Reason Onset Date Comments Appointment Request 09/20/2024 Encounter Details Date Type Department Care Team ([facility] st Contact Info) Description 09/20/2024 Telephone [facility] MEDICINE [address] [place], [place] [phone] Shana Gonzales MD 230 [place], [place] [phone] Appointment Request Social History Tobacco Use Types Packs/Day Years [...] encounter Miscellaneous Notes * Telephone Encounter - Jayde aSm - 09/24/2024 9:23 AM EDT Tc from pt requesting a call back regarding prior message. Contact pt at [phone] * Telephone Encounter - Calvin Oliver - 09/20/2024 9:12 AM EDT Tc from pt requesting to reschedule nutrition appt. Please contact pt at [phone]. documented in this encounter Plan of Treatment Upcoming Encounters Date Type Department Care Team (Late st Contact Info) Description 11/14/2024 9:15 AM EDT Office Visit [facility] MEDICINE [address] [place], [place] [phone] Shana Gonzales MD 230 [place], [place] [phone] 11/19/2024 9:45 AM EDT Office Visit [facility] OPTOMETRY [address] [place] [address] Ana Ruiz, OD [address] [place] [address] 11/27/2024 2:00 PM EDT Clinical Support [facility] DIABETES/NUTRITION 230 [place], [place] [phone] Medina Mann, CARRIE [address] [place] [address] documented as of this encounter Visit Diagnoses Not on filedocumented in this encounter Additional Health Concerns Assessment Noted Time PHQ-9 Depression Total Score: 23 025 10:53 AM EST documented as of this encounter Care Teams Sleeve Bottom Feller Relationship Specialty Start Date End Date Shana Gonzales MD [address] [place] [address] PCP - General Internal Medicine 06/16/23 documented as of this encounter
--- OUTSIDE RECORDS SUMMARY | 2024-11-12 01:17 | XMS_ITS | Encounter Summary ---
Author Organization [employer] Address [address] 7[address] [place] [address] Care Team Providers Care Allergy Nurse Name Role Phone Shana Gonzales MD Primary Care Provider + Reason for Visit * Reason Comments Med Refill Encounter Details Date Type Department Care Team ([facility] st Contact Info) Description 09/17/2023 Refill [facility] MEDICINE 230 [place], [place] [phone] Shana Gonzales MD [address] [place], [place] [phone] Anxiety Social History Tobacco Use Types Packs/Day Years Used Date Smoking Tobacco: Never Passive Smoke Exposure: Never Smokeless Tobacco: Never Alcohol Use Standard Drinks/Week Comments Never 0 (1 standard drink = 0.6 oz pur e alcohol) Housing Stability Answer Date Recorded What is [...] Description 11/14/2024 9:15 AM EDT Office Visit [facility] MEDICINE [address] [place] [address] Shana Gonzales MD [address] [place] [address] 11/19/2024 9:45 AM EDT Office Visit [facility] OPTOMETRY [address] [place] [address] Ana Ruiz, OD [address] [place] [address] 11/27/2024 2:00 PM EDT Clinical Support [facility] DIABETES/NUTRITION [address] [place] [address] Medina Mann, CARRIE [address] [place] [address] documented as of this encounter Visit Diagnoses Diagnosis Anxiety Anxiety state, unspecified documented in this encounter Care Teams Allergy Nurse Relationship Specialty Start Date End Date Shana Gonzales MD [address] [place] [address] PCP - General Internal Medicine 06/16/23 documented as of this encounter
[2024-11-12 01:50] LABS: Appearance Urine Clear; Glucose Urine UA Negative (Negative); PH 7.5 (5.0-9.0); Specific Gravity - Urine 1.010 (1.005-1.025); UMIC TRIGGER UACC YES
[2024-11-12 01:51] LABS: UPreg QC Valid YES
--- NOTE | 2024-11-12 02:01 | PC.NURSE ---
pt requesting motrin for headache at this time, verbal order placed.
[2024-11-12 02:03] LABS: UACC Culture Trigger YES
--- NOTE | 2024-11-12 02:32 | ED_ITS ---
HPI - Dizziness General Chief Complaint: Dizziness Stated Complaint: Dizziness Time Seen by Provider: 11/12/24 02:30 Source: patient Mode of arrival: ambulatory Limitations: no limitations History of Present Illness ED Provider: Dr. Meghana Rubi HPI Narrative: 39-year-old female with history of fibromyalgia presenting with viral symptoms including fevers, body aches, headaches, nausea and vomiting, dizziness, poor appetite ongoing for the last 3 days or so. Has not measured a temperature at home but feels hot. Denies chest pain or difficulty breathing. No known sick contacts. Denies bowel changes though she has not had a bowel movement today. Admits that she has an IUD in place and she is not supposed to be having menstruation however, she had a little bit of vaginal bleeding for 3 days about a week ago. Says it stopped and then came back again and she has been experiencing some abdominal cramping. The IUD has been in place for about a year. Related Data Home Medications ?Medication ?Instructions ?Recorded ?Confirmed trazodone 50 mg tablet 50 mg PO BEDTIME 07/09/22 levonorgestrel (Mirena) intrauterine 02/28/23 Previous Rx's ?Medication ?Instructions ?Recorded acetaminophen 650 mg 650 mg PO Q12H PRN pain #60 tabs 10/14/20 tablet,extended release (Mapap Arthritis Pain) metronidazole 500 mg tablet 500 mg PO BID 7 days #14 t abs 03/05/24 tizanidine 4 mg tablet 4 mg PO BEDTIME PRN for musc le 03/26/24 spasm #30 tabs gabapentin 300 mg capsule 300 mg PO TID 30 days #90 ca ps 05/28/24 cephalexin 500 mg capsule 500 mg PO QID 7 days #28 cap s 11/12/24 dicyclomine 20 mg tablet 20 mg PO TID #10 tabs ondansetron 4 mg disintegrating 4 mg PO Q8H PRN nausea and 11/12/24 tablet vomiting #10 tabs Allergies Allergy/AdvReac Type Severity Reaction Status Date / Time No Known Allergies Allergy Mild UNKNOWN Verified 11/11/24 23:52 Review of Systems 2 Review of Systems: as per HPI, full review of systems performed and negative but for the above mentioned pertinent positives and negatives. FORMERLY [facility] Past Medical History Medical History Thoracic spondylosis Family History Family History Mother Diabetes High cholesterol Uterine cancer Social History Social History Household Members: Children Housing: House Alcohol intake: never Patient Tobacco Use Status: Former Tobacco user Smoked in Last 30 Days: No Use of substances other than those prescribed or required for medical reasons: No Advance Directives: No Advance Directives Information Provided: Yes Patient : No Physical Exam 2 Exam: Exam: GENERAL: Ill-Appearing, appears uncomfortable. SKIN: Normal skin color for ethnicity, warm, dry, no rashes noted. HEENT:? Normocephalic, atraumatic, no stridor, dry mucous membranes, dentition intact, EOMI. NECK: Soft, supple, full ROM, midline structures nontender, no step-offs, no deformities, no lymphadenopathy. CHEST: Heart regular tachycardia, no murmurs, symmetric chest rise and fall. PULMONARY: Clear to auscultation bilaterally, diminished at the bases, no labored breathing, no wheezes/rhales/rhonchi. ABDOMINAL: Soft, nondistended, suprapubic tenderness to palpation, positive bowel sounds in all quadrants. : Deferred. MUSCULOSKELETAL: Normal tone, full range of motion, no deformities, no peripheral edema. NEURO: Alert and oriented x3, CN II through XII intact, equal strength and sensation bilateral upper and lower extremities, no focal neurologic deficits.? PSYCHIATRIC: Flat affect, fluid speech, good eye contact and appropriate demeanor. Vital Signs: Vital Signs: Last Vital Signs Temp 97.8 F 11/12/24 06:35 Pulse 89 11/12/24 06:35 Resp 14 11/12/24 06:35 BP 108/62 11/12/24 06:35 Pulse Ox 96 11/12/24 06:35 O2 Del Method Room Air 11/12/24 06:35 BMI result Body Mass Index 36.7 Medications Administered Discontinued Medications Generic Name Dose Route Start Last Admin Trade Name Freq PRN Reason Stop Dose Admin Ceftriaxone Sodium 1 gm 11/12/24 02:58 11/12/24 03:18 Ceftriaxone Sodium 1 Gm Vial IVPUSH 11/12/24 02:59 1 gm ONCE ONE Administration Lactated Ringer's 1,000 mls @ 999 mls/hr 11/12/24 02:58 11/12/24 05:00 Lr IV 11/12/24 03:58 Infused .Q1H1M ONE Infusion Ibuprofen 600 mg 11/12/24 01:48 11/12/24 01:59 Ibuprofen 600 Mg Tablet PO 11/12/24 01:49 600 mg ONCE ONE Administration Ketorolac Tromethamine 15 mg 11/12/24 02:58 11/12/24 03:18 Ketorolac Tromethamine 15 Mg/Ml Vial IVPUSH 11/12/24 02:59 15 mg ONCE ONE Administration Metoclopramide HCl 10 mg 11/12/24 02:58 11/12/24 03:18 Metoclopramide Hcl 10 Mg/2 Ml Vial IVPUSH 11/12/24 02:59 10 mg ONCE ONE Administration Medical Decision Making Medical Decision Making [facility] Narrative: Patient presents today with flu-like symptoms. Differential diagnosis includes influenza, coronavirus, pneumonia, upper respiratory infection, among others. Most importantly, this patient is not in any acute respiratory distress. They have normal oxygen levels at room air. She is having what might be hematuria with this spotting and pelvic pain. I'm going to treat her for UTI. Otherwise, she is presenting as viral picture. She is not septic. I have discussed medication and other home therapies that will help the patient and have discussed strict return precautions. Instructed that symptoms may worsen and the patient might need re-evaluation or even hospitalization in the future, but did not show signs of this at the time of discharge. Differential Diagnosis Differential Diagnoses: The differential diagnosis associated with the presentation includes (as above) Admission/Observation Consideration of admission/observation: Escalation of care including admission/observation considered Lab Data [facility] Lab Attestation statement: I reviewed the patient's lab results. 11/12/24 00:03 11/12/24 00:03 Labs: Lab Results 11/12/24 11/12/24 Range/Units 00:03 01:41 WBC 13.2 H (4.8-10.8) X10*3/uL RBC 4.36 (4.20-5.50) X10*6/uL Hgb 12.0 (12.0-16.0) g/dl Hct 35.7 L (37.0-47.0) % MCV 81.9 (80.0-98.0) fL MCH 27.5 (27.0-33.0) pg MCHC 33.6 (31.0-35.0) g/dl RDW 13.3 (11.0-16.0) % Plt Count 222 (160-400) X10*3/uL MPV 10.4 (9.4-12.3) fL Immature Gran % (Auto) 0.4 (0.0-0.4) % Neut % (Auto) 79.3 H (45-73) % Lymph % (Auto) 9.8 L (20-40) % [place] % (Auto) 10.0 (2-11) % Eos % (Auto) 0.1 (0-4) % Baso % (Auto) 0.4 (0-2) % Lymph # (Auto) 1.3 (1.2-4.9) X10*3/uL [place] # (Auto) 1.3 H (0.1-1.2) X10*3/uL Eos # (Auto) 0.0 (0.0-0.4) X10*3/uL Baso # (Auto) 0.1 (0.0-0.2) X10*3/uL Abs Immat Gran (auto) 0.05 H (0.00-0.03) X10*3/uL Absolute Neuts (auto) 10.5 H (2.0-8.3) x10*3/uL Absolute Nucleated RBC 0.000 (0.0-0.012) X10*3/uL Nucleated RBC % (auto) 0.0 (0.0-0.2) /100WBC Sodium 139 (135-145) mmol/L Potassium 4.0 (3.3-5.1) mmol/L Chloride 105 (96-108) mmol/L Carbon Dioxide 23 (22-29) mmol/L Anion Gap 15 (12-20) BUN 10 (9-16) mg/dL Creatinine 0.82 (0.5-1.4) mg/dL Estim Creat Clear Calc 98.5 Estimated GFR > 60 Random Glucose 121 H (60-115) mg/dL Calcium 8.7 (8.4-10.2) mg/dL Total Bilirubin 0.4 (0.0-1.0) mg/dL AST 20 (5-31) U/L ALT 17 (0-31) U/L Alkaline Phosphatase 91 (39-117) U/L Total Protein 7.4 (6.5-8.0) g/dL Albumin 4.5 (3.5-5.0) g/dL Urine Color Yellow Urine Appearance Clear Urine pH 7.5 (5.0-9.0) Ur Specific [place] 1.010 (1.005-1.025) Urine Protein Negative (Neg-Trace) mg/dL Urine Glucose (UA) Negative (Negative) mg/dL Urine Ketones Negative (Negative) mg/dL Urine Blood Small (1+) H (Negative) Urine Nitrite Negative (Negative) Ur Leukocyte Esterase Trace H (Negative) Urine RBC 0-2 (0-2) /HPF Urine WBC 6-10 H (0-5) /HPF Ur Squamous Epith Cells 3-5 (0-2) /HPF Urine Bacteria 1+ (None Seen) Hyaline Casts 0-2 (0-2) /LPF Urine Test NEGATIVE (NEGATIVE) COVID-19 (DUNIA) Negative (Negative) COVID-19 Clin Com See Note Influenza Type A (LIDA) Negative (Negative) Influenza Type B (LIDA) Negative (Negative) Influenza A & B Note See Note Independent Historian Clinical information obtained from an independent historian. History obtained from or confirmed by: Spouse Prescription Management I considered prescription management with: Pain Medication and Antibiotic Chronic Conditions Patient?s care impacted by: Other (fibromyalgia) Discharge Plan Discharge Clinical Impression: Acute viral syndrome, UTI (urinary tract infection) Patient Disposition: Home, Self-Care Instructions: Urinary Tract Infection in Women (ED), Viral Syndrome (ED) Additional Instructions: Take your antibiotics as prescribed until the course is completed. Do not stop this medication early if you start to feel better. Use Zofran for nausea. Use Bentyl for abdominal cramping. Return to the emergency department immediately with any new or worsening symptoms including: Worsening pain despite medications, inability to tolerate food or drink, fevers that continue for more than 5 days in a row, any new symptom that concerns you. Continue to drink plenty of fluids over the next several days. Stay well hydrated. Prescriptions: New dicyclomine 20 mg tablet 20 mg PO TID Qty: 10 0RF cephalexin 500 mg capsule 500 mg PO QID 7 Days Qty: 28 0RF ondansetron 4 mg tablet,disintegrating 4 mg PO Q8H PRN (Reason: nausea and vomiting) Qty: 10 0RF No Action acetaminophen [Mapap Arthritis Pain] 650 mg tablet extended release 650 mg PO Q12H PRN (Reason: pain) Qty: 60 5RF metronidazole 500 mg tablet 500 mg PO BID 7 Days Qty: 14 0RF Rx Instructions: Take with food, Avoid alcohol and vinegar products tizanidine 4 mg tablet 4 mg PO BEDTIME PRN (Reason: for muscle spasm) Qty: 30 1RF gabapentin 300 mg capsule 300 mg PO TID 30 Days Qty: 90 8RF Mirena 21 mcg/24 hours (8 yrs) 52 mg intrauterine device intrauterine trazodone 50 mg tablet 50 mg PO BEDTIME Interventions: ED Discharge Assessment Last Done: 11/12/24 06:35 Discharge Date/Time: 11/12/24 06:39 Print Language: Bahamian
[2024-11-12 03:00] VITALS: BP 111/56; PULSE 101; RESP 16; TEMP 36.6; O2SAT 97
[2024-11-12] MEDS: Lactated Ringers 1,000 ML 999 ML IV (03:17)
[2024-11-12 05:31] VITALS: BP 108/62; PULSE 89; RESP 14; TEMP 36.6; O2SAT 96
[2024-11-12 06:35] VITALS: BP 108/62; PULSE 89; RESP 14; TEMP 36.6; O2SAT 96
== END 2024-11-12 06:39 | disposition home or self-care (01) ==
PROVIDERS: Emergency Provider Emergency Medicine
DX: N39.0 Urinary tract infection, site not specified (principal); B34.9 Viral infection, unspecified; R42 Dizziness and giddiness; R50.9 Fever, unspecified; R51.9 Headache, unspecified
CPT/HCPCS: 80053; 81001; 81025; 85025; 87086; 87088; 87186; 87502; 87635; 93005; 96361; 96374; 96375; 99284; 99285; J0696; J1885; J2765; J7120

== ENCOUNTER → 2024-11-11 23:59 | Outpatient (BNV) | payer MEDICAID, SELFPAY | PROVIDERS: Emergency Provider Emergency Medicine; Visit Provider Internal Medicine Cardiovascular Disease | DX: R00.0 Tachycardia, unspecified (principal) | CPT/HCPCS: 93010 ==